=== PATIENT | female | born 1990 | race Caucasian/White ===

== ENCOUNTER 2019-10-07 11:53 | Emergency (ER) | payer MEDICAID, SELFPAY ==
[2019-10-07] VITALS (8 sets, daily range): BP systolic 100–137; BP diastolic 61–76; PULSE 81–97; RESP 15–23; TEMP 36.2; O2SAT 95–99
--- NOTE | ~2019-10-07 | CT_ITS ---
EXAMINATION: CTA chest PE protocol EXAM DATE: 10/07/2019 15:24 INDICATION: Shortness of breath. Chest pressure. Nausea. 30 weeks . TECHNIQUE: Spiral CTA of the chest (pulmonary arteries) was performed with 100 cc Omnipaque 350 intr avenous contrast injection. Images were acquired during the pulmonary arterial phase. Coronal maxi mum intensity projection 3D-reconstructions were created by the technologist on dedicated workstation . Axial, coronal and sagittal reformatted images were reviewed. The dose-length product (DLP) for t his examination was 687.74 mGy-cm. The exposure was tailored according to patient size (auto mA exp osure control), and iterative reconstruction (ASIR) was used as additional dose reduction technique. There is no prior study for comparison. FINDINGS: There is suboptimal pulmonary arterial opacification, however there are no filling defects suspected. Slight respiratory motion at the lung bases. No thoracic aortic dissection. The lungs a re clear. There are no pleural or pericardial effusions. Tracheobronchial tree is patent. There is no mediastinal, hilar or axillary lymphadenopathy. There is no pneumothorax. Heart normal in size. No evidence of coronary arterial calcification. Upper abdomen is unremarkable. There is th oracic spondylosis without osteoblastic or osteolytic lesions identified. IMPRESSION: Mild limitations but no pulmonary emboli suspected. Unremarkable exam. Reviewed, dictated and finalized at location A. IMPRESSION: Mild limitations but no pulmonary emboli suspected. Unremarkable ex am.
--- NOTE | ~2019-10-07 | XR_ITS ---
EXAMINATION: XR chest 2V 10/07/2019 12:39 INDICATION: Left-sided chest pain PROCEDURE: 2 view chest COMPARISON: No prior studies for comparison. FINDINGS: The lungs are clear. The cardiomediastinal silhouette is within normal limits. There are no pleural effusions. There is no pneumothorax suspected. IMPRESSION: 1: NO ACUTE CARDIOPULMONARY DISEASE. Reviewed, dictated and finalized at location A.
--- NOTE | 2019-10-07 11:58 | ECG_ITS ---
Measurements Intervals [place] Rate: 91 P: 153 DC: 143 QRS: 137 QRSD: 88 T: 165 QT: 340 QTc: 420 Interpretive Statements SINUS RHYTHM LIMB LEAD REVERSAL BASELINE ARTIFACT- I, II, III, AVR, AVL, AVF ATYPICAL ECG Electronically Signed On 10-07-2019 12:35:28 CDT by Nav Cuevas D.O.
[2019-10-07 12:37] LABS: Basophils Percent Auto 0.2 % (0.2-1.2); Eosinophils Percent Auto 0.3 % (0-4.4); Hematocrit 36.5 % (37.0-47.0); Hemoglobin 12.4 g/dL (12.0-15.0); Immature Granulocyte Absolute 0.08 K/mm3 (0.00-0.031); Immature Granulocyte Percent A 0.6 % (0-0.5); Lymphocytes Absolute Auto 1.33 K/mm3 (0.9-3.2); Lymphocytes Percent Auto 10.6 % (18.3-44.2); Mean Corpuscular Hemoglobin 31.5 pg (26-34); Mean Corpuscular Volume 92.6 fl (80-100); Mean Platelet Volume 10.3 fl (7.4-10.4); Monocytes Absolute Auto 0.7 K/mm3 (0.1-0.6); Monocytes Percent Auto 5.4 % (2.6-8.5); Neutrophils Absolute Auto 10.3 K/mm3 (1.3-6.7); Neutrophils Percent Auto 82.9 % (45.5-73.1); Platelet Count Result 263 k/mm3 (150-375); Red Blood Count 3.94 M/mm3 (4.2-5.4); Red Cell Distribution Width 13.4 % (11.5-14.5); White Blood Count 12.5 K/mm3 (4.5-10.0)
[2019-10-07 13:00] LABS: Blood Urea Nitrogen 5 mg/dL (7-17); Calcium 9.4 mg/dL (8.4-10.2); Carbon Dioxide 21 mmol/L (22-30); Chloride 104 mmol/L (98-107); Estimated CRCL calculation 186 ml/min; Estimated Glomerular Filt Rate > 60; Glucose 82 mg/dL (65-105); Potassium 3.8 mmol/L (3.4-5.0); Sodium 133 mmol/L (137-145)
--- NOTE | 2019-10-07 13:05 | ED.CHESTPAIN ---
HPI - Chest Pain General Chief Complaint: Chest Pain Stated Complaint: chest pains, pressure, SOB Nausea, 30 WKS PREG Time Seen by Provider: 10/07/19 12:07 Source: RN notes reviewed History of Present Illness HPI narrative: Patient presents emergency department from home for chest pain. Patient states she woke at 6 AM this morning with pain in the midsternal chest rating to her left chest and left shoulder. States associated with shortness of breath. States symptoms are improved at this time but still continues to have the symptoms. Patient also notes mild associated nausea. Patient is approximately 30 weeks patient is followed by Dr Taylor. States that she has had no abdominal pain diarrhea or any other symptoms. States she took no previous medication Related Data Home Medications Medication Instructions Recorded Confirmed vit 84-[id number]-[id number]-dha cap PO 10/07/19 10/07/19 [ Multi-DHA (algal oil)] Allergies Allergy/AdvReac Type Severity Reaction Status Date / Time codeine Allergy Unknown Nausea and Verified 10/07/19 11:55 Vomiting Review of Systems Review of Systems: Narrative: Gen.: Denies fevers or chills Eyes: Denies eye pain or visual change ENT: Denies congestion Respiratory: Reports shortness of breath CV: Reports chest pain GI: Denies abdominal pain, emesis or diarrhea. Reports nausea reports Musculoskeletal: Denies back pain or muscle pain Neuro: Denies numbness, tingling, weakness or focal weakness Skin: Denies rash Except as documented, all other systems reviewed and negative PMFSH Past Medical History Medical History (Updated 10/07/19 @ 16:23 by Tarik Martinez DO) Patient denies significant medical history Family History Family History (Updated 11/27/15 @ 23:19 by DOCTOR UNKNOWN) Grandparent Hypertension Family history of osteoarthritis Family history of malignant neoplasm of breast Diabetes mellitus Other Family history of malignant neoplasm of kidney Family history of malignant neoplasm of urinary bladder Social History Social History Smoking status: Never smoker Alcohol intake: never Gender identity (if verbalized by the patient): Female Exam Narrative: Exam Narrative: APPEARANCE: No acute distress, nontoxic, resting in bed EYES: EOMI HEENT: Normocephalic, atraumatic, OMM RESPIRATORY: No respiratory distress Clear to auscultation bilaterally with no rhonchi wheezing or rales. CARDIOVASCULAR: Regular rate and rhythm without murmurs rubs or gallops. ABDOMINAL: Gravid uterus palpated,, nontender, nondistended, no rebound or guarding MUSCULOSKELETAl: Moves all extremities. No clubbing, cyanosis or edema. NEURO: Awake and alert. Following commands, speech normal, no focal deficits SKIN:: Warm, dry. No rashes lesions or abrasions PSYCHIATRIC: Normal affect/mood, Course Course Emergency Course: Patient states that she is still feeling short of breath at this time Called and discussed Dr Taylor presentation and work-up. Discussed patient's continued shortness of breath. This time will obtain CTA chest to rule out a PE : Discussed Dr Taylor results of CTA. This time feels patient may be discharged recommends patient started on Pepcid and will follow in the office Discussed with patient results of workup and diagnosis. Discussed need for follow-up with primary care, proper use of medication, and reasons to return to the emergency department. Patient understands and agrees to current treatment plan Vital Signs Vital signs: Vital Signs Temperature 97.1 F L 10/07/19 11:58 Pulse Rate 97 10/07/19 11:58 Respiratory Rate 18 10/07/19 11:58 Blood Pressure 137/72 10/07/19 11:58 Pulse Oximetry 99 10/07/19 11:58 Temperature 97.1 F L 10/07/19 11:58 Pulse Rate 93 10/07/19 15:43 Respiratory Rate 23 H 10/07/19 15:43 Blood Pressure 112/75 10/07/19 15:
[2019-10-07 13:11] LABS: Troponin I < 0.012 ng/mL (0.000-0.034)
[2019-10-07 13:24] LABS: Partial Thromboplastin Time 27.6 SECONDS (22.3-36.8); Prothrombin Time 12.4 Seconds (11.1-14.7)
[2019-10-07] MEDS: MAG HYDROX/AL HYDROX/SIMETH 30 ML UDC PO (13:33)
[2019-10-07 14:23] LABS: Alanine Aminotransferase 13 U/L (4-35); Albumin Level 3.8 g/dL (3.5-5.1); Alkaline Phosphatase 103 U/L (38-126); Aspartate Amino Transferase 24 U/L (14-36); Bilirubin,Total 0.3 mg/dL (0.2-1.3); Lipase 74 U/L (23-300)
[2019-10-07 16:00] LABS: Troponin I < 0.012 ng/mL (0.000-0.034)
== END 2019-10-07 16:32 | disposition home or self-care (01) ==
PROVIDERS: Emergency Provider Emergency Medicine; PCP Family Medicine
DX: O26.893 Other specified pregnancy related conditions, third trimester (principal); R06.00 Dyspnea, unspecified; R07.2 Precordial pain; Z3A.30 30 weeks gestation of pregnancy
CPT/HCPCS: 36415; 71046; 71275; 80048; 80076; 83690; 84484; 85025; 85610; 85730; 93005; 96374; 99284; A9270; J0131; Q9967

== ENCOUNTER 2019-10-31 16:23 | Observation (INO) | payer MEDICAID, SELFPAY ==
[2019-10-31 16:42] VITALS: BP 115/75; PULSE 96
[2019-10-31 16:45] VITALS: BP 109/64; PULSE 91
[2019-10-31 17:00] VITALS: BP 120/74; PULSE 101; TEMP 36.9
[2019-10-31] MEDS: DEXTROSE 5%/LACTATED RINGERS 1,000 ML 999 ML IV CONT (17:41)
[2019-10-31 17:44] LABS: Add Urine Microscopic? YES; Amorphous Sediment Urine Few; Appearance Urine Clear (Clear); Bacteria Urine Trace /hpf; Bilirubin Urine 1+ (Negative); Blood Urine Negative (Negative); Color Urine Yellow (Yellow); Glucose Urine UA Negative (Negative); Ketones Urine Trace mg/dL (Negative); Leukocyte Esterase Ur Negative LEU/UL (Negative); Mucus Urine Heavy /lpf; Nitrate Urine Negative (Negative); Protein Urine 2+ mg/dL (Negative); Squamous Epithelial Cell Urine Many /hpf (Few)
[2019-10-31 17:45] LABS: Specific Grav Ur 1.032 (1.001-1.035)
[2019-10-31 17:46] VITALS: BMI 36.1
--- NOTE | 2019-10-31 17:51 | OBADM ---
This patient, Meghna Go, admitted to the OB room 117 at 1623 for observation for nausea, diarrhea, and possible leakage of fluid. Patient/family oriented to hospital policies and general routines including ID bracelet, bed and alarms, visiting hours, pain management, procedures, bathroom and other care routines, personal items, smoking policy, room service/diet, and visiting hours. Patient/Family are encouraged to report perceived risks to care and to ask questions if they do not understand what they are told or what they should do.
[2019-10-31 18:00] VITALS: BP 109/79; PULSE 87
[2019-10-31] MEDS: ONDANSETRON INJ 4 MG/2 ML VIAL IV PUSH (18:11)
--- NOTE | 2019-10-31 18:55 | PC.NURSE ---
184- Dr. Taylor paged [phone]- Dr. Taylor returned page- update on pt given. pt feeling better overall except a frontal headache- 5/10 pain- pt not wanting pain medication for headache at this time. Pt wanting to know if she is ok to take pepcid at home- ok to take OTC pepcid 20mg BID. continue fluids and rest at home. f/u in office at next visit or return to L&D if further questions/concerns. order to d/c home recieved.
--- NOTE | 2019-11-05 12:08 | PM.OBTRLD ---
OB - Triage/Final Diagnosis Evaluation Laboratory results: Laboratory Tests 10/31/19 17:30 Urine Color Yellow Urine Appearance Clear Urine pH 6.0 Ur Specific [place] 1.032 Urine Protein 2+ H Urine Glucose (UA) Negative Urine Ketones Trace Ur Blood (Man) Negative Urine Nitrate Negative Urine Bilirubin 1+ H Urine Urobilinogen 2.0 H Leukocyte Esterase Rfl Negative Urine RBC 3-5 H Urine WBC 4-6 H Ur Squamous Epith Cells Many H Amorphous Sediment Few H Urine Bacteria Trace Urine Mucus Heavy H Final Diagnosis (1) Cramping affecting , antepartum: Code(s): O26.899 - Other specified related conditions, unspecified trimester; R10.9 - Unspecified abdominal pain Status: Acute
== END 2019-10-31 19:18 | disposition home or self-care (01) ==
PROVIDERS: Admitting Provider Obstetrics & Gynecology; PCP Family Medicine; Visit Provider Obstetrics & Gynecology
DX: O26.899 Other specified pregnancy related conditions, unspecified trimester (principal); R10.9 Unspecified abdominal pain; Z3A.00 Weeks of gestation of pregnancy not specified
CPT/HCPCS: 81001; 96374; G0378; G0379; J0690; J2405; J7121

== ENCOUNTER 2019-12-02 09:57 | Outpatient (RCR) | payer OTHER, SELFPAY ==
--- NOTE | ~2019-12-02 | US_ITS ---
EXAMINATION: US OB limited DATE: 12/02/2019 11:21 INDICATION: Amniotic fluid index assessment, third trimester TECHNIQUE: Real-time ultrasound of the pelvis was performed. The interpreting radiologist was not pre sent for the study. COMPARISON: None. FINDINGS: There is a single living fetus in vertex presentation. The placenta is anterior/fundal. Fet al cardiac activity and movement are noted. heart rate is 150 beats per minute (bpm). The amniotic fluid index is 19.1 cm which is normal. IMPRESSION: 1. Single living fetus in vertex presentation. 2. Normal amniotic fluid assessment. Reviewed, dictated and finalized at location A.
[2019-12-02 10:54] VITALS: BP 122/79; PULSE 96
== END 2019-12-19 07:41 | disposition home or self-care (01) ==
LOC: ANHOBOP 09:57
PROVIDERS: PCP Family Medicine; Visit Provider Obstetrics & Gynecology
DX: O36.8130 Decreased fetal movements, third trimester, not applicable or unspecified (principal); Z3A.38 38 weeks gestation of pregnancy
CPT/HCPCS: 59025; 76815

== ENCOUNTER 2019-12-04 17:31 | Inpatient (IN) | payer OTHER, SELFPAY ==
[2019-12-05] VITALS (230 sets, daily range): BP systolic 80–139; BP diastolic 21–104; PULSE 71–152; RESP 16; TEMP 36.6–37.2; O2SAT 91–100; BMI 38.4
--- NOTE | 2019-12-05 00:10 | LDADM ---
This patient, Meghna Go, was admitted to Labor/Delivery/Recovery 103 on 12/04/19 at 17:31. Plans for labor, pain management and were discussed with patient. Patient/family oriented to hospital policies and general routines including ID bracelet, bed and alarms, visiting hours, pain management, procedures, bathroom and other care routines, personal items, smoking policy, room service/diet and guest tray routines, security routines, and visiting hours. Patient/Family are encouraged to report perceived risks to care and to ask questions if they do not understand what they are told or what they should do. See OBIX for further documentation.
[2019-12-05] MEDS: LACTATED RINGERS 1,000 ML 125 ML IV CONT ×4 (00:22→10:54)
[2019-12-05 00:28] LABS: Basophils Percent Auto 0.3 % (0.2-1.2); Eosinophils Percent Auto 0.3 % (0-4.4); Hematocrit 33.5 % (37.0-47.0); Hemoglobin 11.7 g/dL (12.0-15.0); Immature Granulocyte Percent A 0.7 % (0-0.5); Lymphocytes Absolute Auto 1.52 K/mm3 (0.9-3.2); Lymphocytes Percent Auto 11.3 % (18.3-44.2); Mean Corpuscular HGB Conc 34.9 g/dl (32-36); Mean Corpuscular Hemoglobin 32.2 pg (26-34); Mean Corpuscular Volume 92.3 fl (80-100); Mean Platelet Volume 10.8 fl (7.4-10.4); Monocytes Absolute Auto 0.9 K/mm3 (0.1-0.6); Monocytes Percent Auto 6.3 % (2.6-8.5); Neutrophils Absolute Auto 10.9 K/mm3 (1.3-6.7); Neutrophils Percent Auto 81.1 % (45.5-73.1); Platelet Count Result 258 k/mm3 (150-375); Red Blood Count 3.63 M/mm3 (4.2-5.4); Red Cell Distribution Width 14.2 % (11.5-14.5); White Blood Count 13.5 K/mm3 (4.5-10.0)
--- NOTE | 2019-12-05 00:54 | WPDANESEPP ---
Anes - Eval Pre Procedure Procedure: Labor epidural Date/Time: 12/05/19 00:54 Surgeon: jackie Preop Diagnosis: pain during labor Pre Op Diagnosis: contractions, leaking fluid Patient Data Age: 29 Gender: F Height: 1.75 m Weight: 118 kg Last Vital Signs Temp 37.0 C 12/05/19 00:15 Pulse 91 12/05/19 00:07 BP 122/85 12/05/19 00:07 Pulse Ox 99 12/05/19 00:53 Allergies Allergy/AdvReac Type Severity Reaction Status Date / Time codeine AdvReac Unknown Nausea and Verified 12/02/19 10:49 Vomiting hydrocodone [From Vicodin] AdvReac Nausea and Verified 12/02/19 10:49 Vomiting Home Medications Medication Instructions Recorded Confirmed Type Multi-DHA (algal oil) 1 cap PO DAILY 10/07/19 12/04/19 History omeprazole 20 mg PO DAILY 11/18/19 12/02/19 History Laboratory Tests 12/05/19 12/05/19 00:20 00:20 WBC 13.5 K/mm3 H K/mm3 (4.5-10.0) RBC 3.63 M/mm3 L M/mm3 (4.2-5.4) Hgb 11.7 g/dL L g/dL (12.0-15.0) Hct 33.5 % L % (37.0-47.0) MCV 92.3 fl fl (80-100) MCH 32.2 pg pg (26-34) MCHC 34.9 g/dl g/dl (32-36) RDW 14.2 % % (11.5-14.5) Plt Count 258 k/mm3 k/mm3 (150-375) MPV 10.8 fl H fl (7.4-10.4) Immature Gran % (Auto) 0.7 % H % (0-0.5) Neut % (Auto) 81.1 % H % (45.5-73.1) Lymph % (Auto) 11.3 % L % (18.3-44.2) Sawyer % (Auto) 6.3 % % (2.6-8.5) Eos % (Auto) 0.3 % % (0-4.4) Baso % (Auto) 0.3 % % (0.2-1.2) Lymph # (Auto) 1.52 K/mm3 K/mm3 (0.9-3.2) Sawyer # (Auto) 0.9 K/mm3 H K/mm3 (0.1-0.6) Eos # (Auto) 0.0 K/mm3 K/mm3 (0-0.3) Baso # (Auto) 0.0 K/mm3 K/mm3 (0.0-0.1) Abs Immat Gran (auto) 0.10 K/mm3 H K/mm3 (0.00-0.031) Absolute Neuts (auto) 10.9 K/mm3 H K/mm3 (1.3-6.7) Absolute Nucleated RBC 0.0 K/mm3 K/mm3 (0.0-0.012) Nucleated RBC % 0.0 % % (0.0-0.2) RPR Pending Patient hx anesthesia problems: none Family hx anesthesia problems: none PMFSH Past Medical History Medical History (Updated 12/05/19 @ 00:54 by Deb Murrieta CRNA) Obesity (BMI 30-39.9) Patient denies significant medical history Family History Family History (Updated 11/18/19 @ 12:40 by Laci Valencia RN) Grandparent Family history of osteoarthritis Diabetes mellitus Hypertension Family history of malignant neoplasm of kidney Family history of malignant neoplasm of urinary bladder Lymphoma Asthma Hypothyroid Cataract Mother Hypertension Bipolar 1 disorder Social History Social History Smoking status: Never smoker Alcohol intake: never Substance use: never Gender identity (if verbalized by the patient): Female Spiritual care concerns: No Exam Day of Procedure 12/05/19 00:54
[2019-12-05] MEDS: OXYTOCIN 30 UNITS/NS 500 ML 30 UNITS/500 ML BAG IV CONT ×3 (02:56→15:09)
--- NOTE | 2019-12-05 07:22 | WPDHPUPDATE1 ---
History and Physical Update Update Date/Time: 12/05/19 07:22 29 yo G1 at 38w3d who presented in labor. Pt reports regular contractions that started Monday afternoon. She denies any LOF or vaginal bleeding. She endorses good movement. Her has been uncomplicated to date. History and Physical has been reviewed, including an updated exam of the patient. There are NO changes in the patient's condition. Risks, benefits, and alternatives have been discussed and questions answered. Patient agrees to proceed with procedure. A/P: 29 yo G1 at 38w3d in labor admit to L&D routine admission orders Rh+ GBS neg FHT cat 1 regular ctx on toco SROM for clear fluid continuous EFM expectant management
--- NOTE | 2019-12-05 08:45 | WPDOBADMIT ---
Obstetrics - Admit Note Admission Note: record reviewed. Additions to the history and/or subsequent changes in the physical findings follow. 29 y/o G1 at 38 3/7 weeks here with contractions. Had SROM while here for evaluation last evening. Now comfortable with epidural, receiving oxytocin for labor augmentation. AVSS NST reactive TOCO: contractions every 2-4 min ABD soft, nontender, gravid, vertex EXT nontender Cervix 4/90/-1. Vertex. A: IUP at term. P: Continue labor. Anticipate .
[2019-12-05 10:20] LABS: Rapid Plasma Reagin Non-Reactive (NonReactive)
[2019-12-05] MEDS: ONDANSETRON INJ 4 MG/2 ML VIAL IV PUSH (10:57)
--- NOTE | 2019-12-05 12:43 | PM.OBPNLAB ---
Pain Control Date/time seen: 12/05/19 12:43 Comments: Feeling more pressure. Pelvic Exam Dilation (cm): 8 Effacement (%): 100 station: +1 Contractions Contraction frequency: 3 Contraction pattern: Regular Status status: Category l Assessment and Plan Comments: Continue labor.
--- NOTE | 2019-12-05 15:00 | PM.OBPRVD ---
OB - Delivery Note Procedure Delivery date: 12/05/19 Procedure: Induction method: none Delivery augmentation: pitocin Delivery monitor: external FHT and external uterine Route of delivery: Laceration description: Perineal - 2nd Degree Delivery repair: vicryl (3-0) Specimen: Yes (cord blood) Estimated blood loss (mL): 1,434 Anesthesia type: Epidural Disposition: PACU Complications: None Narrative: 29 y/o G1 at 38 3/7 weeks gestation who presented to the hospital with complaint of contractions. She then had SROM while here for evaluation, so labor was diagnosed. Oxytocin was subsequently administered intravenously for labor augmentation. She received an epidural for pain control. Her labor progressed and her cervix dilated completely. She pushed with good effort and delivered the infant's head to the perineum, followed by the body. The nose and mouth were bulb suctioned. After a delay, the cord was clamped and cut. The was handed off the field. Cord blood was collected. The placenta delivered spontaneously and was grossly normal in appearance. The usual 3 vessel cord was noted. A second degree midline perineal laceration was sustained. This was reapproximated using 2-0 and 3-0 Vicryl in the usual layered fashion. Excellent hemostasis resulted as did excellent reapproximation of the normal anatomy. Needle and instrument counts were correct. The patient was taken to recovery room in stable condition. The infant went to the nursery in stable condition. I was present and scrubbed for the entire delivery. [place] Baby Date of : 12/05/19 Time of : 14:34 Weeks of gestation at delivery: 38 Infant gender: Male Weight (pounds): 8 Weight (ounces): 11 presentation: vertex position: Right Occiput Anterior Placenta delivery description: Spontaneous and Normal Configuration cord vessel description: 3 Vessels and Nuchal Cord score one minute: 9 score five minutes: 9
[2019-12-05] MEDS: BENZOCAINE 20% AER SPR (*SP) 56 GM CAN 1 SPRAY TOPICAL (16:35)
[2019-12-05] MEDS: IBUPROFEN 600 MG TABLET PO ×2 (16:35→23:00)
[2019-12-05] MEDS: WITCH HAZEL 40 PADS 1 PAD TOPICAL (16:35)
--- NOTE | 2019-12-05 17:43 | PC.NURSE ---
Patient transferred to post room #291 via wheelchair. Support person present. Oriented to unit, room, information board, rooming in, admission packet and security measures. Patient verbalizes understanding.
[2019-12-06 05:27] LABS: Hematocrit 28.2 % (37.0-47.0); Hemoglobin 9.7 g/dL (12.0-15.0)
[2019-12-06] MEDS: IBUPROFEN 600 MG TABLET PO ×2 (06:06→11:58)
--- NOTE | 2019-12-06 07:50 | WPDANLDPN2 ---
Anes-Prog Note L&D Date/Time: 12/06/19 07:50 Comfortable throughout: labor Neuraxial method: epidural Epidural/Spinal procedure site: clean & non-tender Neuro status: Neuro function grossly intact. Cardiovascular status: normal Respiratory status: normal Airway patency: baseline Mental status: baseline Post-Op hydration status: normal Vital Signs: Last Vital Signs Temp 37.2 C 12/05/19 15:45 Pulse 98 12/05/19 17:16 Resp 16 12/05/19 15:45 BP 127/69 12/05/19 17:16 Pulse Ox 97 12/05/19 15:45 I/O: Intake & Output 12/05/19 12/05/19 12/06/19 15:59 23:59 07:59 Intake Total 1999 Output Total 54 Balance 1999 Post-procedural complaints: none Patient feedback: Patient satisfied with anesthetic care.
[2019-12-06 08:00] VITALS: PULSE 98; RESP 16; O2SAT 97
[2019-12-06 08:15] VITALS: BP 101/75; PULSE 110; RESP 18; TEMP 36.2; O2SAT 98
[2019-12-06] MEDS: DOCUSATE SODIUM 100 MG CAPSULE PO (08:21)
[2019-12-06] MEDS: MULTIVIT/MIN/PREN/FOL AC/IRON TABLET 1 TAB PO (08:21)
[2019-12-06] MEDS: POLYSACCHARIDE IRON COMPLEX 150 MG CAPSULE PO (08:21)
[2019-12-06] MEDS: TETANUS,DIPHTHERIA,AC PERTUSSIS ADULT (0.5 ML) BOOSTRIX IM (11:59)
--- NOTE | 2019-12-06 13:18 | PM.OBPNVD ---
OB - PN: Subj Subjective Date/time seen: 12/06/19 13:19 Narrative: Pain OK. Would like circumcision for son. OB - PN: Obj Data Labs CBC & Chem 7: 12/06/19 04:00 Labs: Laboratory Results - last 24 hr 12/06/19 04:00 Hgb 9.7 L Hct 28.2 L OB - PN A/P Plan Comments: A: PPD#1, doing well. P: Routine care. Reviewed circumcision. Exam Psych: Other: AVSS ABD soft, nontender, fundus firm EXT nontender
--- NOTE | 2019-12-06 16:00 | PC.NURSE ---
Patient viewed the discharge video Mother & Baby Care, The First Two Weeks . Patient was given the opportunity and encouraged to ask questions. Patient verbalized understanding of information shared and has been given the mother/baby guide for home reference.
[2019-12-09 11:25] VITALS: BP 117/72; PULSE 94; RESP 20; TEMP 36.3; O2SAT 99
--- NOTE | 2019-12-09 11:56 | PM.OBDSVD ---
DS: Admitting Diagnosis Admitting Diagnosis Admitting Diagnosis: labor at term DS: Discharge Diagnosis Discharge Diagnosis (1) (normal spontaneous vaginal delivery): Code(s): O80 - Encounter for full-term uncomplicated delivery Status: Acute OB - DS: Summary OB Procedures : None OB Procedures Intrapartum: Spontaneous Vag Delivery OB Procedures: : None Time Spent with Patient Time attestation: Total time spent providing and/or coordinating discharge services: Discharge Plan Discharge Attending physician on discharge: Byron Taylor Discharging Clinician: Byron Taylor Patient Disposition: Home, Self-Care Activity: pelvic rest Diet: regular Discharge Instructions: Call or return if temperature above 100.4? F, increased abdominal pain, increased vaginal bleeding or any new problems. Education: Mom and Baby Guide Given to: Mother Follow-Up: Call your delivering provider's office for an appointment to be seen in: 6 Weeks Mom and baby should come to the [facility] for the follow-up appointment. Appointment Date/Time: December 09, 2019 at 11:00 am What to expect at your follow-up visit: Physical Assessment Call [phone] if you are unable to keep your appointment time. BREAST CARE: * Wear a snug supportive bra. * For engorgement discomfort: Breast Feeding: * Apply warm moist washcloths * Express milk as needed to relieve engorgement * Wear loose clothing Bottle Feeding: * May apply ice packs * For sore nipples: * Identify correct latch-on * Apply warm moist washcloths before and after nursing * Air dry nipples after nursing * May apply Lansinoh cream to nipples EPISIOTOMY/PERINEAL CARE: * Until bleeding stops, use your pj bottle after urinating * Change your pad frequently throughout the day * You may take sitz baths several times a day (fill your bathtub with warm water and soak for 20 minutes.) Do NOT bathe in the water * No tub baths until seen by your physician - You may shower ACTIVITY: * Rest as much as possible. * Do not exercise or lift anything heavier than your baby (such as laundry or other children.) * Avoid stairs or driving as much as possible. * Do not put anything into the vagina. No douching, tampons, or sexual activity until seen by physician. NOTIFY PHYSICIAN IF YOU HAVE ANY QUESTIONS OR IF ANY OF THE FOLLOWING SYMPTOMS OCCUR: * If your episiotomy or incision becomes red, swollen, or more painful than what you have experienced in the hospital. * If your vaginal bleeding becomes foul smelling. * If your vaginal bleeding becomes more heavy than a period or if your bleeding changes from pink to bright red. However, you may pass an occasional walnut-sized clot once or twice for the first week . * If you experience a sharp, shooting pain in you calves. * If you discover a hard, reddened area on your breast or if you experience flu-like symptoms. DIET: * Eat regular, well-balanced meals. * Drink plenty of fluids daily. If , drink to thirst. Stand Alone Forms: General Discharge Information Follow-up/Referrals: Byron Taylor MD [Physician] - (6 weeks) Discharge Medications: New ibuprofen 600 mg tablet 600 mg PO Q6H PRN (Reason: cramps) Qty: 30 RF: 0 ferrous sulfate 325 mg (65 mg iron) tablet 325 mg PO DAILY Qty: 30 RF: 0 Continued omeprazole 20 mg Capsule,Delayed Release(Dr/Ec) 20 mg PO DAILY RF: 0 Multi-DHA (algal oil) 27mg iron- 800 mcg-250 mg capsule 1 cap PO DAILY RF: 0 Date of admission: 12/04/19 17:31 Primary Care Provider: Omid Bernal Admitting Provider: Davin Mac Discharge Date/Time: 12/06/19 18:47 Attending physician on admission: Byron Taylor
== END 2019-12-06 18:47 | disposition home or self-care (01) | DRG 560 ==
LOC: ANHLDR 23:39 → ANHOB2 12-05 17:47
PROVIDERS: Admitting Provider Student in an Organized Health Care Education/Training Program; PCP Family Medicine; Visit Provider Obstetrics & Gynecology
DX: O69.81X0 Labor and delivery complicated by cord around neck, without compression, not applicable or unspecified (principal); O70.1 Second degree perineal laceration during delivery; Z3A.38 38 weeks gestation of pregnancy; Z37.0 Single live birth; E66.9 Obesity, unspecified; O99.214 Obesity complicating childbirth
CPT/HCPCS: 36415; 85014; 85018; 85025; 86592; 86850; 86900; 86901; 90715; A9270; J0131; J2405; J2590; J2795; J7120

== ENCOUNTER 2020-04-03 02:11 | Emergency (ER) | payer OTHER, SELFPAY ==
--- NOTE | ~2020-04-03 | CT_ITS ---
EXAMINATION: CT abdomen pelvis w con EXAM DATE: 04/03/2020 03:58 INDICATION: Epigastric pain. TECHNIQUE: Spiral CT of the abdomen and pelvis was performed following intravenous injection of 100 m L Omnipaque 350. Axial, coronal and sagittal images were reviewed. The dose-length product (DLP) fo r this examination was 1316.75 mGy-cm. The exposure was tailored according to patient size (auto mA exposure control), and iterative reconstruction (ASIR) was used as additional dose reduction techniqu e. Comparison is made to prior examination from 04/05/2015. FINDINGS: The liver, spleen, adrenal glands and pancreas are unremarkable. No calcified cholelithias is. Slightly indistinct gallbladder wall, consider correlating with ultrasound. Portal and splenic v eins are patent. Kidneys enhance symmetrically. There is no hydronephrosis. The uterus and ovarie s are unremarkable, no adnexal mass. The bladder is unremarkable. There is no retroperitoneal or pe lvic lymphadenopathy. The appendix is normal. The stomach and small bowel are unremarkable. There is expected amount of c olonic stool. No free intraperitoneal gas. The heart is normal in size. There are no pericardial or pleural effusions. The lung bases are unremarkable. There are no osteoblastic or osteolytic les ions identified. IMPRESSION: Mildly distended gallbladder with mildly indistinct wall. Possible cholecystitis. Recomme nd ultrasound. Reviewed, dictated and finalized at location A. TACKER SEWING MACHINE IMPRESSION: Mildly distended gallbladder with mildly indistinct wall. Possible cholecystitis. Recommend ultrasound.
[2020-04-03 02:12] VITALS: BP 156/109; PULSE 82; RESP 16; TEMP 36.1; O2SAT 100
--- NOTE | 2020-04-03 02:23 | ED.ABDPAIN ---
HPI - Abdominal Pain General Chief Complaint: Abdominal Pain Stated Complaint: abdominal pain, vomiting Time Seen by Provider: 04/03/20 02:13 History of Present Illness HPI narrative: Epigastric pain since about 10 PM last night. Worsening in intensity. Associated with nausea and vomiting. Tried taking Tums twice without relief. She has never had this pain before. No prior abdominal surgeries. She did have GERD when she was 4 months ago. Related Data Home Medications Medication Instructions Recorded Confirmed Multi-DHA (algal oil) 1 cap PO DAILY 10/07/19 12/04/19 omeprazole 20 mg PO DAILY 11/18/19 12/02/19 Allergies Allergy/AdvReac Type Severity Reaction Status Date / Time codeine AdvReac Unknown Nausea and Verified 04/03/20 02:16 Vomiting hydrocodone [From Vicodin] AdvReac Nausea and Verified 04/03/20 02:16 Vomiting Review of Systems Review of Systems: All systems reviewed & are unremarkable except as noted in HPI and below Constitutional: Constitutional: Denies fever(s) ENT: Denies sore throat Cardiovascular: Cardiovascular: Denies chest pain Respiratory: Respiratory: Denies dyspnea Gastrointestinal: Gastrointestinal: Reports abdominal pain, Denies constipation, Denies diarrhea, Reports nausea and Reports vomiting Genitourinary: Genitourinary: Denies dysuria Musculoskeletal: Musculoskeletal: Reports no additional musculoskeletal complaints Neurologic: Denies dizziness and Denies weakness PMF Past Medical History Medical History Obesity (BMI 30-39.9) Patient denies significant medical history Family History Family History Grandparent Family history of osteoarthritis Diabetes mellitus Hypertension Family history of malignant neoplasm of kidney Family history of malignant neoplasm of urinary bladder Lymphoma Asthma Hypothyroid Cataract Mother Hypertension Bipolar 1 disorder Social History Social History Smoking status: Never smoker Alcohol intake: never Substance use: never Gender identity (if verbalized by the patient): Female Spiritual care concerns: No Exam Const: General: no acute distress and alert Nutritional Appearance: obese Orientation/consciousness: patient oriented x3 HENMT: Head: normal to inspection Chest: Chest palpation & inspection: normal inspection of the chest and no tenderness Resp: Effort & Inspection: normal respiratory effort Auscultation: clear to auscultation bilaterally Cardio: Rate: regular rate Rhythm: regular rhythm GI: Inspection: non-distended GI Palp: Yes Soft to palpation, Yes Tenderness to palpation present (GI) (Epigastrium and RUQ), No Guarding due to palpation present (GI) and No Rebound tenderness present Auscultation: normal bowel sounds Skin: General skin exam: normal color Neuro: General: patient oriented x3 and moves all extremities Extrem: General: normal to inspection and no edema Course Vital Signs Vital signs: Vital Signs Temperature 36.1 C L 04/03/20 02:12 Pulse Rate 82 04/03/20 02:12 Respiratory Rate 16 04/03/20 02:12 Blood Pressure 156/109 H 04/03/20 02:12 Pulse Oximetry 100 04/03/20 02:12 Temperature 36.1 C L 04/03/20 02:12 Pulse Rate 85 04/03/20 06:17 Respiratory Rate 18 04/03/20 06:17 Blood Pressure 110/63 04/03/20 06:17 Pulse Oximetry 98 04/03/20 06:17 MDM - Abdominal Pain MDM Narrative Medical decision making narrative: Acute cholecystitis on CT. Case discussed with Dr. Keyes. He is will ing to admit if the patient would like unsure when she would go to the OR. Otherwise she can go home on antibiotics. Discussed this with the patient. She chooses to go home and follow-up next week. Differential Diagnosis Differential diagnosis: Likely other (Cholecystitis,
[2020-04-03] MEDS: PANTOPRAZOLE SODIUM IV 40 MG VIAL IV PUSH (02:28)
[2020-04-03] MEDS: fentaNYL CITRATE INJ (*CRX) 100 MCG/2 ML VIAL 50 MCG IV PUSH (02:28)
[2020-04-03] MEDS: SODIUM CHLORIDE 0.9% IV 1,000 ML 999 ML IV CONT (02:28)
[2020-04-03] MEDS: ONDANSETRON INJ 4 MG/2 ML VIAL IV PUSH (02:28)
[2020-04-03 02:44] LABS: Basophils Percent Auto 0.4 % (0.2-1.2); Eosinophils Absolute Auto 0.1 K/mm3 (0-0.3); Eosinophils Percent Auto 1.1 % (0-4.4); Hematocrit 38.7 % (37.0-47.0); Hemoglobin 13.2 g/dL (12.0-15.0); Immature Granulocyte Absolute 0.05 K/mm3 (0.00-0.031); Immature Granulocyte Percent A 0.4 % (0-0.5); Lymphocytes Absolute Auto 2.07 K/mm3 (0.9-3.2); Lymphocytes Percent Auto 18.3 % (18.3-44.2); Mean Corpuscular HGB Conc 34.1 g/dl (32-36); Mean Corpuscular Volume 90.8 fl (80-100); Mean Platelet Volume 10.2 fl (7.4-10.4); Monocytes Absolute Auto 0.8 K/mm3 (0.1-0.6); Monocytes Percent Auto 7.2 % (2.6-8.5); Neutrophils Absolute Auto 8.2 K/mm3 (1.3-6.7); Neutrophils Percent Auto 72.6 % (45.5-73.1); Platelet Count Result 336 k/mm3 (150-375); Red Blood Count 4.26 M/mm3 (4.2-5.4); Red Cell Distribution Width 13.5 % (11.5-14.5); White Blood Count 11.3 K/mm3 (4.5-10.0)
[2020-04-03 03:25] LABS: Alanine Aminotransferase 27 U/L (4-35); Albumin Level 4.8 g/dL (3.5-5.1); Alkaline Phosphatase 125 U/L (38-126); Anion Gap 11 mmol/L (8-16); Aspartate Amino Transferase 31 U/L (14-36); Bilirubin,Total 0.5 mg/dL (0.2-1.3); Blood Urea Nitrogen 15 mg/dL (7-17); Calcium 10.6 mg/dL (8.4-10.2); Carbon Dioxide 29 mmol/L (22-30); Chloride 99 mmol/L (98-107); Estimated CRCL calculation 118 ml/min; Estimated Glomerular Filt Rate > 60; Glucose 113 mg/dL (65-105); Lipase 137 U/L (23-300); Sodium 139 mmol/L (137-145)
[2020-04-03 03:43] LABS: Potassium 3.6 mmol/L (3.4-5.0)
[2020-04-03] MEDS: CIPROFLOXACIN 500 MG TAB PO (05:43)
[2020-04-03 06:17] VITALS: BP 110/63; PULSE 85; RESP 18; O2SAT 98
== END 2020-04-03 06:19 | disposition home or self-care (01) ==
PROVIDERS: Emergency Provider Emergency Medicine; PCP Family Medicine
DX: K81.9 Cholecystitis, unspecified (principal); E66.9 Obesity, unspecified; Z68.33 Body mass index [BMI] 33.0-33.9, adult
CPT/HCPCS: 36415; 74177; 80053; 81025; 83690; 85025; 96361; 96374; 96375; 99284; A9270; C9113; J2405; J3010; J7030; Q9967

== ENCOUNTER 2020-04-08 10:14 | Outpatient (CLI) | payer OTHER, SELFPAY ==
[2020-04-08 10:54] LABS: Alanine Aminotransferase 26 U/L (4-35); Albumin Level 4.4 g/dL (3.5-5.1); Alkaline Phosphatase 89 U/L (38-126); Amylase 55 U/L (30-110); Aspartate Amino Transferase 29 U/L (14-36); Bilirubin,Total 0.5 mg/dL (0.2-1.3); Lipase 82 U/L (23-300)
== END 2020-04-08 10:15 | disposition home or self-care (01) ==
LOC: ANHSURGERY 10:15
PROVIDERS: PCP Family Medicine; Visit Provider Surgery
DX: Z01.812 Encounter for preprocedural laboratory examination (principal); K81.1 Chronic cholecystitis
CPT/HCPCS: 36415; 80076; 82150; 83690; 86850; 86900; 86901

== ENCOUNTER 2020-04-10 02:03 | Outpatient (CLI) | payer OTHER, SELFPAY ==
[2020-04-10 18:46] LABS: SARS-CoV-2 RNA PCR Negative
== END 2020-04-10 02:04 | disposition home or self-care (01) ==
LOC: ANHCOVIDDT 02:03
PROVIDERS: PCP Family Medicine; Visit Provider Surgery
DX: Z01.812 Encounter for preprocedural laboratory examination (principal); Z11.59 Encounter for screening for other viral diseases
CPT/HCPCS: 87635; C9803; U0003

== ENCOUNTER 2020-04-13 01:41 | Day surgery (SDC) | payer OTHER, SELFPAY ==
[2020-04-06 14:52] VITALS: BMI 34.7
[2020-04-13] VITALS (7 sets, daily range): BP systolic 111–117; BP diastolic 53–71; PULSE 63–106; RESP 14–18; TEMP 36.1–36.8; O2SAT 95–100
[2020-04-13] MEDS: LACTATED RINGERS 1,000 ML 30 ML IV CONT ×3 (06:25→09:50)
[2020-04-13] MEDS: ACETAMINOPHEN 500 MG TABLET 1000 MG PO (06:36)
--- NOTE | 2020-04-13 06:36 | WPDANESEPPF ---
Anes - Initial Pre Proc Eval Procedure: Operation Date: 04/13/20 07:30 Proposed Procedures p Laparoscopic Cholecystectomy, Possible Open - Jamia Keyes MD Date/Time: 04/13/20 06:36 Surgeon: Jamia Keyes MD Pre Op Diagnosis: Chronic Cholecystitis Without Calculus Patient Data Age: 29 Gender: F Height: 1.75 m Weight: 107.1 kg Allergies Allergy/AdvReac Type Severity Reaction Status Date / Time codeine AdvReac Mild Nausea and Verified 04/13/20 06:06 Vomiting Home Medications Medication Instructions Recorded Confirmed Type Multi-DHA (algal oil) 1 cap PO DAILY 10/07/19 04/13/20 History fluoxetine 20 mg PO DAILY 04/06/20 04/13/20 History Patient hx anesthesia problems: none Family hx anesthesia problems: none [facility] Past Medical History Medical History (Updated 04/13/20 @ 06:52 by Jericho Le DO) Anxiety Depression History of kidney stones History of MRSA infection inner thigh, 2012 - treated outpatient Obesity (BMI 30-39.9) Patient denies significant medical history Surgical History Surgical History Dislocation of proximal interphalangeal joint of finger S/P ovarian cystectomy Family History Family History Grandparent Family history of osteoarthritis Diabetes mellitus Hypertension Family history of malignant neoplasm of kidney Family history of malignant neoplasm of urinary bladder Lymphoma Asthma Hypothyroid Cataract Mother Hypertension Bipolar 1 disorder Social History Social History Smoking status: Never smoker Alcohol intake: never Substance use: never Living arrangements: with family Gender identity (if verbalized by the patient): Female Spiritual care concerns: No Anes - Eval Final PreProcedure Day of Procedure 04/13/20 06:36 Patient weight: obese Heart: regular rate and rhythm Lungs: clear to auscultation and normal air movement Airway: Mallampati scale class 1 Neurological: alert and oriented Last oral intake: >/= 8 hours ASA classification: II Emergent: no Anesthetic plan: proceed Anesthesia type and monitoring: general ETT and standard monitoring Informed Consent: The patient's anesthetic plan and its attendant risks and benefits were discussed with the patient/family/POA. Questions were solicited and answers provided to the satisfaction of the patient/family/POA.
[2020-04-13] MEDS: KETOROLAC 15 MG/ML VIAL (*BKC) IV PUSH (06:37)
--- NOTE | 2020-04-13 07:22 | WPDHPUPDATE1 ---
History and Physical Update Update Date/Time: 04/13/20 07:22 History and Physical has been reviewed, including an updated exam of the patient. There are NO changes in the patient's condition. Risks, benefits, and alternatives have been discussed and questions answered. Patient agrees to proceed with procedure.
[2020-04-13] MEDS: ceFAZolin 2 GM/D5W 50 ML 2 GM/50 ML BAG IVPB (07:30)
[2020-04-13] MEDS: BUPIVACAINE/EPINEPHRINE 0.25% 10 ML VIAL 30 ML INFILTRATE (07:58)
--- NOTE | 2020-04-13 08:18 | PM.PROC ---
Procedure Note - Detailed Date of procedure: 04/13/20 Pre-op diagnosis: Chronic Cholecystitis Without Calculus Post-op diagnosis: same Procedure performed: laparoscopic cholecystectomy Description of procedure: The patient was taken to the operating room placed in the supine position. After adequate induction of general anesthesia, the patient was prepped and draped in normal sterile fashion. A time-out was then performed to verify the patient's identity as well as the procedure being performed. I then made a 5 mm incision in the infraumbilical region. Through this, a Veress needle was placed into the peritoneal cavity and CO2 gas was then insufflated. After adequate pneumoperitoneum was achieved, the Veress needle was removed and a 5 mm trocar was placed through this incision. I then placed the laparoscope through this trocar site and under direct visualization placed a further 12 mm subxiphoid port as well as 2 additional 5 mm ports in the right upper abdomen. The gallbladder was then identified and was noted to be slightly inflamed. I was able to place a grasper at the dome of the gallbladder and this was retracted anterior and cephalad up over the liver. A 2nd retractor was then placed at the infundibulum and retracted laterally, this allowed visualization of the triangle of Calot. I then was able to visualize the cystic duct in its entirety from its proximal insertion into the gallbladder, to its distal junction with the common hepatic/common bile duct junction. At this point, I carefully skeletonized the proximal cystic duct with the [place] dissector. I then clipped and transected the proximal cystic duct. Next I visualized the cystic artery. Again the artery was skeletonized, clipped, and transected. I then used the Bovie cautery to take down the peritoneal attachments of the gallbladder off the liver bed. Once the gallbladder specimen was completely detached, an endo-pouch was placed through the 12 mm port site. I then placed the gallbladder specimen into the Endo pouch and removed the endo-pouch from the 12 mm port site. The specimen will now be sent to pathology for further review. I then copiously irrigated the right upper quadrant. Hemostasis was noted in the liver bed, the clips were noted to be in good position on both the cystic duct stump and the cystic artery stump. No other pathology was noted in the right upper quadrant. I then moved the laparoscope to the subxiphoid port. No iatrogenic injury or other pathology was noted in the lower abdomen. At this point, the abdomen was desufflated and all ports removed. The fascia of the 12 mm subxiphoid port was closed with a 0 Vicryl figure of 8 suture. All port sites were then closed with 4.O Monocryl subcuticular sutures. Dermabond was placed on each incision. The patient tolerated the procedure well, was extubated in the operating room postoperative and will be transferred to the recovery room in stable condition. Implants: none Anesthesia: GETA Surgeon: Jamia Keyes MD Estimated blood loss (mL): 5 Drains: No Packing: No Pathology: yes Complications: No immediate complications Condition: stable Disposition: PACU Findings: chronic cholecystitis
[2020-04-13] MEDS: fentaNYL CITRATE INJ (*CRX) 100 MCG/2 ML VIAL 25 MCG IV PUSH ×2 (08:53→08:57)
[2020-04-13] MEDS: ONDANSETRON INJ 4 MG/2 ML VIAL IV PUSH (09:21)
[2020-04-13] MEDS: diphenhydrAMINE HCl INJ 50 MG/ML VIAL 12.5 MG IV PUSH (10:04)
== END 2020-04-13 11:00 | disposition home or self-care (01) ==
PROVIDERS: PCP Family Medicine; Visit Provider Surgery
PROC: 0FT44ZZ Resection of Gallbladder, Percutaneous Endoscopic Approach (ICD-10-PCS; CPT 47562; principal; 2020-04-13 07:30)
DX: K80.10 Calculus of gallbladder with chronic cholecystitis without obstruction (principal); F41.9 Anxiety disorder, unspecified; F32.9 Major depressive disorder, single episode, unspecified; Z87.442 Personal history of urinary calculi; E66.9 Obesity, unspecified; Z68.34 Body mass index [BMI] 34.0-34.9, adult; Z86.14 Personal history of Methicillin resistant Staphylococcus aureus infection
CPT/HCPCS: 47562; 88304; A9270; J0690; J1100; J1200; J1885; J2250; J2405; J2704; J2710; J3010; J7030; J7120

== ENCOUNTER 2022-10-17 17:50 | Emergency (ER) | payer OTHER, SELFPAY ==
--- NOTE | ~2022-10-17 | XR_ITS ---
EXAMINATION: XR chest 2V Exam Date/Time: 10/17/2022 18:40 CDT HISTORY: cough, fever/chills, r/o pna Comparison: 10/07/2019. RESULT: Lines, tubes, and devices: Cholecystectomy clips. Lungs and pleura: Linear scar/atelectasis in the left lung base. No focal consolidation, effusion, o r pneumothorax. Cardiomediastinal silhouette: Stable. Other: No acute osseous or upper abdominal finding. IMPRESSION: No acute cardiopulmonary process. Reviewed, dictated and finalized at location K.
[2022-10-17 17:55] VITALS: BP 111/63; PULSE 109; RESP 20; TEMP 37; O2SAT 98
--- NOTE | 2022-10-17 19:02 | ED.URI ---
HPI - URI/Sore Throat General Chief Complaint: Upper Respiratory Infection Stated Complaint: cough Time Seen by Provider: 10/17/22 18:22 Source: patient Mode of arrival: ambulatory Limitations: no limitations History of Present Illness HPI Narrative: Patient is a 31-year-old female who presents to the ED with c/o cough and fevers. Patient reports having upper respiratory symptoms for the last 2 days, including cough, congestion, sinus pressure, rhinorrhea, sore throat, intermittent fevers. Her son was sick for several days with similar symptoms prior to her developing symptoms. Patient was seen at an urgent care today and tested negative for COVID and strep. Son tested negative for RSV. She was referred here for to have a chest x-ray. Patient denies any production of sputum with her cough. She did last report fever today, for which she took Tylenol at home. Denies any significant shortness of breath, chest pain, nausea, vomiting, abdominal pain. Related Data Allergies Allergy/AdvReac Type Severity Reaction Status Date / Time codeine AdvReac Mild Nausea and Verified 10/17/22 17:51 Vomiting Review of Systems Review of Systems: CONSTITUTIONAL: See HPI. ENT: See HPI. CARDIOVASCULAR: Denies chest pain. RESPIRATORY: See HPI. GASTROINTESTINAL: Denies abdominal pain, nausea, vomiting, or diarrhea. All systems reviewed & are unremarkable except as noted in HPI and below PMFSH Past Medical History Medical History Adult BMI 36.0-36.9 kg/sq m Anxiety Depression History of kidney stones History of MRSA infection inner thigh, 2012 - treated outpatient Obesity (BMI 30-39.9) Patient denies significant medical history Surgical History Surgical History Dislocation of proximal interphalangeal joint of finger Hx laparoscopic cholecystectomy 04/13/20 S/P ovarian cystectomy Family History Family History Grandparent Family history of osteoarthritis Diabetes mellitus Hypertension Family history of malignant neoplasm of kidney Family history of malignant neoplasm of urinary bladder Lymphoma Asthma Hypothyroid Cataract Mother Hypertension Bipolar 1 disorder Social History Social History Smoking status: Never smoker Alcohol intake: never Substance use: never Living arrangements: with family Occupation/Education: unemployed Gender identity (if verbalized by the patient): Female Spiritual care concerns: No Exam Narrative: GENERAL: Well appearing, obese with BMI of 34, non-toxic, in no acute distress. HEAD: Normocephalic, atraumatic. ENT: MMs moist. Nasal quality to voice. NECK: Supple. No adenopathy, no masses. RESPIRATORY: Airway patent, respirations nonlabored. Clear to auscultation bilaterally, no rales, rhonchi, wheezing. No focal lung sounds. CARDIOVASCULAR: Regular rate and rhythm without murmurs, rubs, or gallops. Radial pulses 2+ and equal bilaterally. MUSCULOSKELETAL: Moves all extremities. Strength/ROM intact without gross deformities. SKIN: Warm, dry, normal color. No rashes. NEURO: A&O X3. Speech clear. Cranial nerves II-XII grossly intact. Steady gait. No ataxic movements. PSYCHIATRIC: Appropriate mood and affect. Normal interaction. Course Vital Signs Vital signs: Vital Signs Temperature 98.6 F 10/17/22 17:55 Pulse Rate 109 H 10/17/22 17:55 Respiratory Rate 20 10/17/22 17:55 Blood Pressure 111/63 10/17/22 17:55 Pulse Oximetry 98 10/17/22 17:55 Temperature 98.6 F 10/17/22 21:42 Pulse Rate 98 10/17/22 21:42 Respiratory Rate 18 10/17/22 21:42 Blood Pressure 120/78 10/17/22 21:42 Pulse Oximetry 100 10/17/22 21:42 Oxygen Delivery Room Air 10/17/22 18:57 MDM - URI/Sore Throat MDM [facility]
--- NOTE | 2022-10-17 19:11 | PC.NURSE ---
Patient report given to KATI Mccann. All questions answered and care of patient transferred.
--- NOTE | 2022-10-17 19:20 | PC.NURSE ---
This RN took over care of patient.
--- NOTE | 2022-10-17 20:32 | PC.NURSE ---
This RN called main lab to get an update on a flu A and B swab that was still pending from 1958. Farrukh from main lab stated he was up in the ED currently and would check on the status of the swab.
[2022-10-17] MEDS: IBUPROFEN 600 MG TABLET PO (20:53)
--- NOTE | 2022-10-17 21:27 | PC.NURSE ---
This Rn called lab again and Farrukh stated that lab ran the flu test as a strep test and was not sure if he could run the swab again. This RN informed EDP.
[2022-10-17 21:42] VITALS: BP 120/78; PULSE 98; RESP 18; TEMP 37; O2SAT 100
[2022-10-17 22:00] LABS: Influenza A QL RT-PCR Negative (Negative); Influenza B QL RT-PCR Negative (Negative)
== END 2022-10-17 21:44 | disposition home or self-care (01) ==
PROVIDERS: Emergency Provider Physician Assistant; PCP Family Medicine
DX: J06.9 Acute upper respiratory infection, unspecified (principal); E66.9 Obesity, unspecified; Z68.34 Body mass index [BMI] 34.0-34.9, adult; Z90.49 Acquired absence of other specified parts of digestive tract; Z86.14 Personal history of Methicillin resistant Staphylococcus aureus infection; Z87.442 Personal history of urinary calculi
CPT/HCPCS: 71046; 87502; 99283; A9270

== ENCOUNTER 2022-12-14 16:33 | Outpatient (CLI) | payer OTHER, SELFPAY ==
--- NOTE | ~2022-12-14 | CT_ITS ---
EXAMINATION: CT abdomen pelvis w con DATE: 12/14/2022 17:10 INDICATION: R10.9 - Unspecified abdominal pain TECHNIQUE: Computed tomography (CT) of the abdomen and pelvis was performed with 100 mL Omnipaque-350 intravenous contrast. Automated exposure control and iterative reconstruction technique were employe d. The dose-length product was 1272.59 mGy-cm. COMPARISON: 04/03/2020. FINDINGS: Lower thorax: Mild dependent left lower lobe atelectasis. Liver: 1 cm peripheral right lower lobe hypodensity, likely hemangioma. Biliary/Gallbladder: Gallbladder is absent. No bile duct dilation. Pancreas: No mass or duct dilation. Spleen: Normal. Adrenals:No mass. Kidneys: No mass, stone, or hydronephrosis. GI tract: Mild distal esophageal and gastric wall edema. No small or large bowel dilation. Normal enmanuel endix. Mild diverticulosis without diverticulitis. Mesentery/Peritoneum: No ascites, mass, or free air. Retroperitoneum: No mass. Pelvis: Pelvic organs are within normal limits. Soft Tissues: Soft tissues and body wall unremarkable. Bones: No acute osseous finding. IMPRESSION: Mild esophagitis/gastritis. Otherwise unremarkable CT abdomen and pelvis findings. Reviewed, dictated and finalized at location K.
== END 2022-12-14 16:34 | disposition home or self-care (01) ==
PROVIDERS: PCP Family Medicine; Visit Provider Nurse Practitioner Family
DX: K20.90 Esophagitis, unspecified without bleeding (principal); R10.819 Abdominal tenderness, unspecified site; R10.9 Unspecified abdominal pain; R19.7 Diarrhea, unspecified
CPT/HCPCS: 74177; Q9967

== ENCOUNTER 2023-08-01 20:48 | Emergency (ER) | payer OTHER, SELFPAY ==
[2023-08-01 20:58] VITALS: BP 117/79; PULSE 87; RESP 18; TEMP 36.7; O2SAT 99
--- NOTE | 2023-08-01 21:48 | ED.FEMALEGU ---
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 Reports she started her period yesterday. The bleeding today has been much more heavy than usual which prompted her to be seen. Reports some mild pelvic cramping. Denies fever, dysuria or hematuria. Related Data Allergies Allergy/AdvReac Type Severity Reaction Status Date / Time codeine AdvReac Mild Nausea and Verified 08/01/23 22:07 Vomiting Review of Systems Review of Systems: CONSTITUTIONAL: Denies fever GASTROINTESTINAL: Denies abdominal pain, nausea, vomiting GENITOURINARY: Denies dysuria or hematuria. All systems reviewed & are unremarkable except as noted in HPI and below PMFSH Past Medical History Medical History Adult BMI 36.0-36.9 kg/sq m Anxiety Depression History of kidney stones History of MRSA infection inner thigh, 2012 - treated outpatient Obesity (BMI 30-39.9) Patient denies significant medical history Surgical History Surgical History Dislocation of proximal interphalangeal joint of finger Hx laparoscopic cholecystectomy 04/13/20 S/P ovarian cystectomy Family History Family History Grandparent Family history of osteoarthritis Diabetes mellitus Hypertension Family history of malignant neoplasm of kidney Family history of malignant neoplasm of urinary bladder Lymphoma Asthma Hypothyroid Cataract Mother Hypertension Bipolar 1 disorder Social History Social History Smoking status: Never smoker Alcohol intake: never Substance use: never Living arrangements: with family Occupation/Education: unemployed Gender identity (if verbalized by the patient): Female Spiritual care concerns: No Exam Narrative: GENERAL: Well-appearing, well-nourished, and in no acute distress. HEAD: Normocephalic, atraumatic. EYES: EOMI. CHEST: Clear to auscultation. No respiratory distress. No wheezes rales or rhonchi HEART: Regular rate and rhythm. No murmur heard. Normal peripheral pulses. ABDOMEN: Soft, nondistended, normal active bowel sounds. No CVA tenderness EXTREMITIES: Normal range of motion. No edema. SKIN: Warm, dry, no rash. NEURO: No focal deficits. Alert and oriented x3. PSYCH: Normal mood and affect PELVIC: Normal external genitalia. Normal appearing cervix. Small amount of dark red blood in the vaginal vault Course Course Emergency Course: Patient updated on workup and agrees with plan of care Vital Signs Vital signs: Vital Signs Temperature 98.0 F 08/01/23 20:58 Pulse Rate 87 08/01/23 20:58 Respiratory Rate 18 08/01/23 20:58 Blood Pressure 117/79 08/01/23 20:58 Pulse Oximetry 99 08/01/23 20:58 Oxygen Delivery Room Air 08/01/23 20:58 Temperature 98.0 F 08/01/23 20:58 Pulse Rate 91 08/01/23 22:24 Respiratory Rate 18 08/01/23 20:58 Blood Pressure 115/87 08/01/23 22:24 Pulse Oximetry 99 08/01/23 20:58 Oxygen Delivery Room Air 08/01/23 20:58 MDM - Female Genitourinary MDM Narrative Medical decision making narrative: Patient presents to the ER for AUB. Reporting heavier menstrual period than usual. Her blood pressure is stable. Hemoglobin is normal. No concerning amount of bleeding on exam. test is negative. UA with RBCs, likely from her menstrual cycle. Also white blood cells, patient is asymptomatic. Will send for culture. Patient updated on workup and agrees with plan of care. 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 She was given warnings
[2023-08-01 21:55] LABS: Basophils Percent Auto 0.5 % (0.2-1.2); Eosinophils Absolute Auto 0.1 K/mm3 (0-0.3); Eosinophils Percent Auto 0.8 % (0-4.4); Hematocrit 38.2 % (37.0-47.0); Hemoglobin 12.9 g/dL (12.0-15.0); Immature Granulocyte Absolute 0.02 K/mm3 (0.00-0.031); Immature Granulocyte Percent A 0.2 % (0-0.5); Lymphocytes Percent Auto 22.6 % (18.3-44.2); Mean Corpuscular HGB Conc 33.8 g/dl (32-36); Mean Corpuscular Hemoglobin 31.7 pg (26-34); Mean Corpuscular Volume 93.9 fl (80-100); Mean Platelet Volume 9.9 fl (7.4-10.4); Monocytes Absolute Auto 0.6 K/mm3 (0.1-0.6); Monocytes Percent Auto 6.8 % (2.6-8.5); Neutrophils Absolute Auto 5.8 K/mm3 (1.3-6.7); Neutrophils Percent Auto 69.1 % (45.5-73.1); Platelet Count Result 340 k/mm3 (150-375); Red Blood Count 4.07 M/mm3 (4.2-5.4); Red Cell Distribution Width 13.1 % (11.5-14.5); White Blood Count 8.4 K/mm3 (4.5-10.0)
[2023-08-01 22:07] LABS: Anion Gap 6 mmol/L (4-12); Blood Urea Nitrogen 9 mg/dL (7-17); Calcium 9.3 mg/dL (8.4-10.2); Carbon Dioxide 27 mmol/L (22-30); Chloride 105 mmol/L (98-107); Estimated CRCL calculation 110 ml/min; Estimated Glomerular Filt Rate > 60; Glucose 95 mg/dL (65-110); Potassium 3.9 mmol/L (3.4-5.0); Sodium 138 mmol/L (137-145)
[2023-08-01 22:22] VITALS: BP 127/80; PULSE 72
[2023-08-01 22:23] VITALS: BP 127/87; PULSE 101
[2023-08-01 22:24] VITALS: BP 115/87; PULSE 91
[2023-08-01 22:24] LABS: Appearance Urine Clear (Clear); Bacteria Urine None Seen /hpf; Bilirubin Urine Negative (Negative); Blood Urine 3+ (Negative); Color Urine Yellow (Yellow); Glucose Urine UA Negative (Negative); Ketones Urine Negative (Negative); Leukocyte Esterase Ur 1+ LEU/UL (Negative); Nitrate Urine Negative (Negative); Non Pathogenic Casts 0-2; Protein Urine Negative (Negative); RBC Urine >100 /hpf (0-2); Specific Grav Ur 1.022 (1.001-1.035); Squamous Epithelial Cell Urine None Seen /hpf (Few)
[2023-08-01 22:28] LABS: Add Urine Microscopic? YES
[2023-08-01 23:25] VITALS: BP 124/87; PULSE 88; RESP 16; TEMP 36.7; O2SAT 99
== END 2023-08-01 23:26 | disposition home or self-care (01) ==
PROVIDERS: Emergency Provider Physician Assistant; PCP Family Medicine
DX: N93.9 Abnormal uterine and vaginal bleeding, unspecified (principal); R82.81 Pyuria; E66.9 Obesity, unspecified; Z68.31 Body mass index [BMI] 31.0-31.9, adult; Z87.442 Personal history of urinary calculi; Z86.14 Personal history of Methicillin resistant Staphylococcus aureus infection; Z90.49 Acquired absence of other specified parts of digestive tract
CPT/HCPCS: 36415; 80048; 81001; 81025; 85025; 87086; 99284

== ENCOUNTER 2023-10-31 14:51 | Outpatient (CLI) | payer OTHER, SELFPAY ==
--- NOTE | ~2023-10-31 | XR_ITS ---
EXAM: XR foot LT min 3V DATE: 10/31/2023 15:18 HISTORY: S99.929A - Unspecified injury of unspecified foot, initia... . COMPARISON: None available. FINDINGS: Normal mineralization. No fracture or dislocation. No lytic or blastic lesion. Mild degene rative changes at the first and fifth MTP joints and the fifth proximal interphalangeal joint. Minima l plantar and Achilles enthesopathy. No erosion or periosteal change. Soft tissues within normal limi ts. IMPRESSION: No acute osseous finding in the left foot. Reviewed, dictated and finalized at location K.
== END 2023-10-31 14:52 | disposition home or self-care (01) ==
LOC: ANHIMG 15:03
PROVIDERS: PCP Family Medicine; Visit Provider Nurse Practitioner Family
DX: S99.929A Unspecified injury of unspecified foot, initial encounter (principal); X58.XXXA Exposure to other specified factors, initial encounter
CPT/HCPCS: 73630

== ENCOUNTER 2024-04-22 09:43 | Outpatient (CLI) | payer OTHER, SELFPAY ==
[2024-04-22 10:08] LABS: Basophils Percent Auto 0.5 % (0.2-1.2); Eosinophils Absolute Auto 0.1 K/mm3 (0-0.3); Eosinophils Percent Auto 0.7 % (0-4.4); Hematocrit 37.3 % (37.0-47.0); Hemoglobin 12.5 g/dL (12.0-15.0); Immature Granulocyte Absolute 0.03 K/mm3 (0.00-0.031); Immature Granulocyte Percent A 0.4 % (0-0.5); Lymphocytes Absolute Auto 1.25 K/mm3 (0.9-3.2); Lymphocytes Percent Auto 14.8 % (18.3-44.2); Mean Corpuscular HGB Conc 33.5 g/dl (32-36); Mean Corpuscular Hemoglobin 31.7 pg (26-34); Mean Corpuscular Volume 94.7 fl (80-100); Mean Platelet Volume 9.8 fl (7.4-10.4); Monocytes Absolute Auto 0.7 K/mm3 (0.1-0.6); Monocytes Percent Auto 7.7 % (2.6-8.5); Neutrophils Absolute Auto 6.4 K/mm3 (1.3-6.7); Neutrophils Percent Auto 75.9 % (45.5-73.1); Platelet Count Result 315 k/mm3 (150-375); Red Blood Count 3.94 M/mm3 (4.2-5.4); White Blood Count 8.4 K/mm3 (4.5-10.0)
[2024-04-22 10:59] LABS: HIV 1/2 Ab P24 Ag Result Negative (Negative)
[2024-04-22 11:37] LABS: Hepatitis B Surface Antigen Negative (Negative)
[2024-04-22 13:21] LABS: Rapid Plasma Reagin Non-Reactive (NonReactive)
[2024-04-23 07:34] LABS: CMV IgG Antibody <0.60 U/mL
== END 2024-04-22 09:44 | disposition home or self-care (01) ==
LOC: ANHLAB 09:45
PROVIDERS: PCP Family Medicine; Visit Provider Student in an Organized Health Care Education/Training Program
DX: N94.89 Other specified conditions associated with female genital organs and menstrual cycle (principal)
CPT/HCPCS: 36415; 84702; 85025; 86592; 86644; 86703; 86747; 86762; 86787; 86850; 86900; 86901; 87086; 87340; G0432

== ENCOUNTER 2024-05-08 15:26 | Outpatient (CLI) | payer OTHER, SELFPAY ==
--- NOTE | ~2024-05-08 | US_ITS ---
EXAMINATION: US OB <=14 wk fetus w TV DATE: 05/08/2024 16:20 INDICATION: with uncertain dates. TECHNIQUE: Real-time transabdominal and transvaginal pelvic ultrasound was performed. COMPARISON: None. FINDINGS: TRANSABDOMINAL ULTRASOUND: The uterus measures 11.1 x 5.5 x 8.2 cm. TRANSVAGINAL ULTRASOUND: There is an intrauterine gestational sac. A yolk sac is identified. The fet al crown rump length measures 0.9 cm, which correlates with an estimated gestational age of 7 weeks a nd 0 day(s) (+/-) 4 day(s). heart motion is identified measuring 153 beats per minute (bpm) by M-mode Doppler. The right ovary measures 3.4 x 2.6 x 3.0 cm. The left ovary measures 3.6 x 1.4 x 1.2 cm. There is no free fluid in the pelvis. IMPRESSION: 1. Single living intrauterine gestation with estimated date of delivery of 12/25/2024. Reviewed, dictated and finalized at location A. TRICIAN IMPRESSION: 1. Single living intrauterine gestation with estimated date of delivery of 11/30.
== END 2024-05-08 15:27 | disposition home or self-care (01) ==
PROVIDERS: PCP Family Medicine; Visit Provider Student in an Organized Health Care Education/Training Program
DX: O26.899 Other specified pregnancy related conditions, unspecified trimester (principal); N94.89 Other specified conditions associated with female genital organs and menstrual cycle; Z3A.00 Weeks of gestation of pregnancy not specified
CPT/HCPCS: 76801; 76817

== ENCOUNTER 2024-06-12 11:04 | Emergency (ER) | payer OTHER, SELFPAY ==
[2024-06-12 11:06] VITALS: BP 112/61; PULSE 99; RESP 16; TEMP 36.4; O2SAT 100
--- OUTSIDE RECORDS SUMMARY | 2024-06-12 11:53 | XMS_ITS ---
Author Organization [facility] Address [address] [place] [address] Care Team Providers Care Supervisor Of Communications Name Role Phone SUN ÁLVAREZ Unavailable [phone] REASON FOR VISIT [facility] new member, could not reach pt; LVMTCB Medications Medication SIG (Take, Route, Frequency, Duration) Notes Start Date End Date Status Vyvanse 50 MG 1 capsule in the mor kvng Orally Once a day Active Xanax 0.5 MG 1 tablet Orally Twice a day Active Encounters Encounter Location Date Provider Diagnosis Redirect [place] [address] [place] [address] 10/10/2023 SUN ÁLVAREZ Plan Of Treatment No Information Progress Notes * Meghna CUELLODOB:1990 (5 0 yo F)Acc No.[id number]:10/10/2023 Patient: Meghna LAKE Provider: LESLY Guzman :1990 A ge:32 Y S ex:Female Date:10/10/2023 Address:[address] [facility] Subjective: * Chief Complaints: * 1 . [facility] new member. 2. could not reach pt; LVMTCB. * Medical History: A DHD, Anxiety Disorder. * Medications: T aking Xanax 0.5 MG Tablet 1 tablet Orally Twice a day , Taking Vyvanse 50 MG Capsule 1 capsule in the morning Orally Once a day Objective: * Vitals: Assessment: Plan: * Treatment: * Billing Information: * Visit Code: * Procedure Codes: * Sign off status: Completed true * Provider: LESLY Guzman Date: 0 10/10/2023 Generated for Alexis Sheehan/Silvana on: 0 06/12/2024 10:52 AM MST
--- OUTSIDE RECORDS SUMMARY | 2024-06-12 11:53 | XMS_ITS ---
Author Organization [facility] Address [address] [place] [address] Care Team Providers Care Glass Technician Name Role Phone KOFI NICHOLSON Unavailable [phone] Reason For Referral Reason JOSE Mcgill [address] [place] [address] HTGR: No appts noted Diagnosis 1 Follow up (Z09) Referral Organization [facility] Referring Provider First Name KOFI Referring Provider Last Name LYN Referring Provider Speciality Family Med icine Referred Provider Specialty Physician As sistant Referral Priority Routine REASON FOR VISIT [place]/HTGR Medications Medication SIG (Take, Route, Frequency, Duration) Notes Start Date End Date Status Vyvanse 50 MG 1 capsule in the mor kvng Orally Once a day Active Xanax 0.5 MG 1 tablet Orally Twice a day Active Encounters Encounter Location Date Provider Diagnosis [facility] [address] [place] [address] 10/10/2023 KOFI NICHOLSON Plan Of Treatment Referrals Referral Date Details 10/10/2023 10/10/2023, JOSE Dexter [place] [address] HTGR: No appts noted Progress Notes * Meghna CUELLODOB:1990 (5 0 yo F)Acc No.[id number]:10/10/2023 Patient: Meghna LAKE :1990 A ge:32 Y S ex:Female Address:[address] [place] [address] Subjective: * Chief Complaints: * I L/HTGR * Medical History: * Surgical History: * Hospitalization/Major Diagno stic Procedure: * Medications: T akingXanax 0.5 MG Tablet 1 tablet Orally Twice a day Vyvanse 50 MG Capsule 1 capsule in the morning Orally Once a day Taking Xanax 0.5 MG Tablet 1 tablet Orally Twice a day Taking Vyvanse 50 MG Capsule 1 capsule in the morning Orally Once a day Objective: * Vitals: * Physical Examination: Assessment: Plan: * Treatment: * Procedure Codes: * true * Date: Generated for Alexis blancas/Horace/eTransmitting on: 0 06/12/2024 10:52 AM [facility] Consultation Request Notes Referral Date Referring Provider Referred Provider Not es 10/10/2023 KOFI NICHOLSON [place] - Abby B eedy [address] [place] [address] HTGR: No appts noted
--- OUTSIDE RECORDS SUMMARY | 2024-06-12 13:38 | XMS_ITS | Patient Health Record ---
Author Organization [facility] Address [address] [place] [address] Care Team Providers Care Core Dipper Name Role Phone KOFI NICHOLSON Unavailable [phone] SUN ÁLVAREZ Unavailable [phone] Reason For Referral Reason JOSE - Zuly Mcgill [address] [facility] [place] [address] HTGR: No appts noted Diagnosis 1 Follow up (Z09) Referral Organization [facility] Referring Provider First Name KOFI Referring Provider Last Name NICHOLSON Referring Provider Speciality Family Med icine Referred Provider Specialty Physician As sistant Referral Priority Routine Medications Medication SIG (Take, Route, Frequency, Duration) Notes Start Date End Date Status Vyvanse 50 MG 1 capsule in the mor kvng Orally Once a day Active Xanax 0.5 MG 1 tablet Orally Twice a day Active Encounters Encounter Location Date Provider Diagnosis [facility] [address] [place] [address] 10/10/2023 KOFI NICHOLSON [facility] [address] [place] [address] 10/10/2023 SUN ÁLVAREZ Plan Of Treatment No Information Insurance Providers Payer Name Payer Address Payer Phone Subscriber Number Group Number Insured Name Patient Relationship to Insured Coverage Start Date Coverage End Date [employer] [id number] [place] [id number] [phone] [id number] Meghna Cuello Self - patient is the insured 4 4 Medical (General) History Medical History History ICD Code ADHD Anxiety Disorder
[2024-06-12] MEDS: ACETAMINOPHEN 500 MG TABLET 1000 MG PO (14:04)
[2024-06-12] MEDS: METOCLOPRAMIDE HCL INJ 10 MG/2 ML VIAL IM (14:04)
[2024-06-12 14:35] LABS: Add Urine Microscopic? YES; Appearance Urine Cloudy (Clear); Bacteria Urine 1+ /hpf; Bilirubin Urine Negative (Negative); Blood Urine Negative (Negative); Color Urine Dark Yellow (Yellow); Glucose Urine UA Negative (Negative); Ketones Urine 4+ mg/dL (Negative); Leukocyte Esterase Ur 1+ LEU/UL (Negative); Nitrate Urine Negative (Negative); Non Pathogenic Casts 0-2; Protein Urine Trace mg/dL (Negative); RBC Urine 0-2 /hpf (0-2); Specific Grav Ur 1.028 (1.001-1.035); Squamous Epithelial Cell Urine Many /hpf (Few); pH Urine 5.5 (5.0-9.0)
[2024-06-12] MEDS: CEFDINIR 300 MG CAPSULE PO (15:18)
--- NOTE | 2024-06-12 18:21 | ED.ABDPAIN ---
HPI - Abdominal Pain General Chief Complaint: Abdominal Pain Stated Complaint: 12 wks preg, abd pain Time Seen by Provider: 06/12/24 13:27 History of Present Illness HPI narrative: Patient who is around 12 weeks presents here with some lower abdominal pain, bilateral, worse with certain movements. No vaginal bleeding or discharge. Also has some occasional nausea and headache. Related Data Allergies Allergy/AdvReac Type Severity Reaction Status Date / Time codeine AdvReac Mild Nausea and Verified 06/12/24 11:08 Vomiting Review of Systems Review of Systems: All systems reviewed & are unremarkable except as noted in HPI and below PMFSH Past Medical History Medical History Localized macular rash Candidiasis of breast Rapid heart rate Abnormal weight gain Encounter to establish care Dizziness Migraine Foot injury (normal spontaneous vaginal delivery) Cramping affecting , antepartum IUP (intrauterine ), incidental Urinary symptom or sign Encounter for surgical aftercare following surgery on the digestive system Abdominal tenderness Abdominal pain Diarrhea Esophagitis with gastritis Chronic cholecystitis with calculus Chronic cholecystitis Depression Anxiety Anxiety and depression Suppression of menses Scalp irritation History of MRSA infection inner thigh, 2012 - treated outpatient Anxiety History of kidney stones Depression Patient denies significant medical history Surgical History Surgical History H/O hammer toe correction Hx laparoscopic cholecystectomy 04/13/20 Dislocation of proximal interphalangeal joint of finger S/P ovarian cystectomy Family History Family History Grandparent Family history of osteoarthritis Diabetes mellitus Hypertension Family history of malignant neoplasm of kidney Family history of malignant neoplasm of urinary bladder Lymphoma Asthma Hypothyroid Cataract Mother Hypertension Bipolar 1 disorder Social History Social History Smoking status: Never smoker Alcohol intake: never Substance use: never Do You Feel Safe in your Home?: Yes Lack of Transportation: No Lack of Food: Never True Current Housing: I Have Housing Concerned About Future Housing: No Difficulty Paying Gas/Electric Bills: No Difficulty Paying for Meds: No Education: Associate Degree Difficulty w/ Childcare or Family Care: No Living arrangements: with family Occupation/Education: unemployed Gender identity (if verbalized by the patient): Female Spiritual care concerns: No Exam Narrative: EXAMINATION OF ORGAN SYSTEMS/BODY AREAS: Constitutional: Vital signs per nursing GENERAL:[No acute distress, non-toxic appearing.] HEAD: Normal with no signs of head trauma. EYES: EOMI, conjunctiva normal ENT: Hearing grossly intact LUNGS: Nonlabored breathing. HEART: [Regular rate and rhythm] ABD: [Soft], [nontender to palpation], no right lower quadrant tenderness EXT: Normal range of motion SKIN: [No rashes or lesions.] NEURO: [Alert and oriented x 3. No gross focal sensory or strength deficits.] PSYCH: Normal affect Course Vital Signs Vital signs: Vital Signs Temperature 97.6 F 06/12/24 11:06 Pulse Rate 99 06/12/24 11:06 Respiratory Rate 16 06/12/24 11:06 Blood Pressure 112/61 06/12/24 11:06 Pulse Oximetry 100 06/12/24 11:06 Oxygen Delivery Room Air 06/12/24 11:06 Temperature 97.6 F 06/12/24 11:06 Pulse Rate 99 06/12/24 11:06 Respiratory Rate 16 06/12/24 11:06 Blood Pressure 112/61 06/12/24 11:06 Pulse Oximetry 100 06/12/24 11:06 Oxygen Delivery Room Air 06/12/24 11:06 MDM - Abdominal Pain MDM Narrative Medical decision making narrative: Patient presenting here with insert intermittent bilateral low for pelvic pain, she is 12 weeks with no dysuria, fevers or chills, does have a slight nausea and headache and she does have history of migraines. Does appear slightly uncomfortable on exam but neurologically intact, abdomen soft without any right lower quadrant tenderness. I did obtain a UA which does show some WBCs bacteria and she is so I will treat this with antibiotics. Bedside ultrasound performed by myself shows intrauterine with normal heart rate and movement. Patient very reassured, feeling better after Tylenol, agreeable to outpatient management with strict return precautions. Lab Data Labs: Lab Results 06/12/24 Range/Units 14:13 Urine Color Dark yellow (Yellow) Urine Appearance Cloudy H (Clear) Urine pH 5.5 (5.0-9.0) Ur Specific [place] 1.028 (1.001-1.035) Urine Protein Trace (Negative) mg/dL Urine Glucose (UA) Negative (Negative) mg/dL Urine Ketones 4+ H (Negative) mg/dL Ur Blood (Man) Negative (Negative) Urine Nitrate Negative (Negative) Urine Bilirubin Negative (Negative) Urine Urobilinogen 1.0 (<2.0) mg/dL Leukocyte Esterase Rfl 1+ H (Negative) CRISTINA/UL Urine RBC 0-2 (0-2) /hpf Urine WBC 11-20 H (0-3) /hpf Ur Squamous Epith Cells Many H (Few) /hpf Urine Bacteria 1+ H /hpf Urine Casts 0-2 Discharge Plan Discharge Clinical Impression: Bacteriuria during Patient Disposition: Home, Self-Care Condition: Stable Instructions: Abdominal Pain in (ED), Urinary Tract Infection in (ED) Additional Instructions: Please take the antibiotics as prescribed, follow-up with your OBGYN in the next 1-2 days. You can take Tylenol as needed for pain. Come back to the emergency room if your symptoms get worse especially if you cannot keep anything down, or if you start having severe pain or bleeding. Patient Language: Khmer Prescriptions: New cefdinir 300 mg capsule 300 mg PO Q12H Qty: 14 0RF No Action bupropion HCl [Wellbutrin XL] 150 mg tablet extended release 24 hr 150 mg PO QAM Qty: 90 1RF duloxetine 30 mg capsule,delayed release(DR/EC) 30 mg PO DAILY Qty: 90 1RF alprazolam [Xanax] 0.5 mg tablet 0.5 mg PO DAILY PRN (Reason: anxiety) Qty: 30 0RF ondansetron 4 mg tablet,disintegrating 4 mg PO Q4-6H PRN (Reason: nausea and vomiting) Qty: 30 2RF Follow-up/Referrals: Davin Mac MD [Primary Care Provider] - 2 Days
== END 2024-06-12 15:22 | disposition home or self-care (01) ==
PROVIDERS: Emergency Provider Emergency Medicine; PCP Student in an Organized Health Care Education/Training Program
DX: O26.891 Other specified pregnancy related conditions, first trimester (principal); R82.71 Bacteriuria; O99.341 Other mental disorders complicating pregnancy, first trimester; F41.9 Anxiety disorder, unspecified; F32.A Depression, unspecified; Z86.14 Personal history of Methicillin resistant Staphylococcus aureus infection; Z87.442 Personal history of urinary calculi; Z90.49 Acquired absence of other specified parts of digestive tract; Z79.899 Other long term (current) drug therapy; Z3A.12 12 weeks gestation of pregnancy
CPT/HCPCS: 81001; 96372; 99283; A9270; J2765

== ENCOUNTER 2024-07-27 04:07 | Outpatient (CLI) | payer OTHER, SELFPAY ==
[2024-07-27] VITALS (38 sets, daily range): BP systolic 96–116; BP diastolic 55–69; PULSE 70–102; O2SAT 97–100
--- NOTE | ~2024-07-27 | XR_ITS ---
EXAMINATION: XR chest 1V portable DATE: 07/27/2024 05:16 INDICATION: Cough. TECHNIQUE: A single frontal view of the chest was obtained. COMPARISON: Chest 2 views 10/17/2022 FINDINGS: There is no pneumonia, pleural effusion, or pneumothorax. The heart size is normal. Surgica l clips in the right upper quadrant are likely from cholecystectomy. IMPRESSION: 1. No acute cardiopulmonary disease. Reviewed, dictated and finalized at location A.
--- NOTE | 2024-07-27 04:28 | PC.NURSE ---
Call placed to Dr. Mac. Stated pt c/o dfm, and persistant cough for 9 days. FHR present. Vitals reported. Order for Stat Chest-Xray
--- OUTSIDE RECORDS SUMMARY | 2024-07-27 04:37 | XMS_ITS | Data Portability ---
Author Organization [facility] [email or web address], Main Office Address [address] [place] [address] Care Team Providers Care Bench Press Operator Name Role Phone ADONIS RAJAN Primary Care Provider ADONIS RAJAN Referring Provider [phone] Assessment Encounter Date Assessment Date Assessment LastModified by Organization Details LastModified Time 02/27/2024 02/27/2024 This note is dictated and transcribed by [employer]. K[employer] variances may occur. Despite proofreading, typographical errors may occur. Occasional wrong-word or 'tfwge-w-ehfc' substitutions may have occurred due to the inherent limitations of voice recording. Read the chart carefully and recognize, using context, where substitutions have occurred. Not available 02/27/2024 09:56:24 03/04/2024 03/04/2024 This note is dictated and transcribed by [employer]. Keg Header variances may occur. Despite proofreading, typographical errors may occur. Occasional wrong-word or 'dcgrf-o-raxz' substitutions may have occurred due to the inherent limitations of voice recording. Read the chart carefully and recognize, using context, where substitutions have occurred. [email or web address] Not available 03/04/2024 14:58:19 04/17/2024 04/17/2024 This note is dictated and transcribed by [employer]. Keg Header variances may occur. Despite proofreading, typographical errors may occur. Occasional wrong-word or 'iyyhr-p-rcqx' substitutions may have occurred due to the inherent limitations of voice recording. Read the chart carefully and recognize, using context, where substitutions have occurred. Not available 04/17/2024 15:34:26 Plan of Treatment Reminders Order Date Submit Date Provider Last Modified By Organization Details Last Modified Time Details Appointments None record ed. Lab None record ed. Referral None record ed. Procedures None record ed. Surgeries None record ed. Imaging None record ed. Medication Orders None record ed. Patient TargetsNo targets recorded. Patient InstructionsNo instructions recorded. Reason for Referral None Reported. Problems Name Problem SNOMED Code Status Onset Date Resolution Date Notes Provider Name and Address Organization Details Recorded Time Ganglion cyst of left foot 0691441804928 103 Active 2023 Toby Wright DPM [address] [facility], [place], [address] , [facility] [employer] [facility] 4 09:56:28 Pain in left foot 0878102468164 07 Active 2023 Toby Wright DPM [address] [facility], [place], [address] , [facility] [employer] [facility] 09:56:32 Attention deficit hyperactiv ity disorder 308405680 Active 2023 Roseanne alexandra [facility] [employer] [facility] 10:21:49 Environmen sully allergy 108577490 Active 2023 Roseanne alexandra, [facility] [employer] [facility] 10:21:56 Anxiety 67686708 Active 2023 Roseanne alexandra [facility] [employer] [facility] 10:22:09 Bronchitis 71584690 Active 2023 Roseanne alexandra, [facility] [employer] [facility] 10:23:54 Depressive disorder 84804822 Active 2023 Roseanne alexandra, [facility] [employer] [facility] 10:24:01 Disorder of eye 485219278 Active 2023 Roseanne alexandra [facility] [employer] [facility] 10:24:09 Headache 16123024 Active 2023 Roseanne alexandra, [facility] [employer] [facility] 10:24:15 Migraine 81547482 [facility] [employer] [facility] 10:24:22 Problem Notes None recorded. Procedures Surgical History Date Name Laterality Status Provider Name and Address Organization Details Recorded Time 02/27/20 24 Blank Procedure Note completed Toby Wright, JEWEL [address], [place], [address], [facility] [employer] [facility] 02/27/2024 13:32:41 03/31/20 20 cholecystectomy completed Roseanne Winter [facility] [employer] [facility] 02/27/2024 10:26:41 03/31/20 10 hammer toe operation completed Roseanne Winter [facility] [employer] [facility] 02/27/2024 10:27:17 07/31/19 08 Cyst Removal completed Roseanne Winter [facility] [employer] [facility] 02/27/2024 10:27:37 Imaging Results None recorded. Procedure Notes None recorded. Medical Equipment None Reported. Allergies Allergen ID Allergen Name Allergen Category Reaction Reaction Severity Criticality Documentation Date Start Date Code Code System Note Provider Name and Address Organization Details Recorded Time 49949 codeine medicatio n Not available Not available Not available 02/27/2024 2670 [facility] [employer] [facility] 10:21:03 Medications Name Sig Start Date Stop Date Status Note LastModified by Organization Details LastModified Time phentermine 37.5 mg tablet TAKE 1 TABLET BY MOUTH DAILY 30 MINUTES BEFORE BREAKFAST OR 1-2HOURS AFTER BREAKFAST 02/26 completed Not Available Not Available Not Available alprazolam 0.5 mg tablet TAKE 1 TABLET BY MOUTH DAILY NEEDED FOR ANXIETY active Not Available Not Available No t Available buspirone 10 mg tablet TAKE 1 TABLET BY MOUTH TWICE A DAY 02/26 completed Not Available Not Available Not Available bupropion HCl XL 150 mg 24 hr tablet, extended release TAKE 1 TABLET BY MOUTH EVERY DAY EVERY MORNING active Not Available Not Available No t Available nitrofurant oin monohydrate /macrocryst als 100 mg capsule TAKE 1 CAPSULE BY MOUTH EVERY 12 HOURS, MUST TAKE WITH A MEAL/FOOD 02/26 completed Not Available Not Available Not Available duloxetine 30 mg capsule,del ayed release TAKE 1 CAPSULE BY MOUTH EVERY DAY active Not Available Not Available No t Available duloxetine 60 mg capsule,del ayed release TAKE 1 CAPSULE BY MOUTH DAILY active Not Available Not Available No t Available Vyvanse 30 mg capsule TAKE 1 CAPSULE BY MOUTH EVERY DAY IN THE MORNING 02/26 completed Not Available Not Available Not Available Vyvanse 50 mg capsule TAKE 1 CAPSULE BY MOUTH EVERY DAY active Not Available Not Available No t Available Vyvanse 40 mg capsule TAKE 1 CAPSULE (40 MG) BY MOUTH EVERY MORNING 02/26 completed Not Available Not Available Not Available Vitals Date Recorded Heart rate Respiratory rate Oxygen saturation Oxygen saturation in Arterial blood by Pulse oximetry Systolic blood pressure Diastolic blood pressure Provider Name and Address Organization Details Last Updated DateTime 4 70 /min 14 /min 99 % 99 % 125 mm[Hg] 89 mm[Hg] Kary Busch [facility] [employer] [facility] 4 09:20:38 Date Recorded Body height Body mass index (BMI) Body weight Provider Name and Address Organization Details Last Updated DateTime 02/27/2024 175.26 cm 31 kg/m2 91531.4 g Roseanne Winter [facility] [employer] [facility] 02/27/2024 10:20:52 Date Recorded Body height Body mass index (BMI) Body weight Heart rate Respiratory rate Oxygen saturation Oxygen saturation in Arterial blood by Pulse oximetry Systolic blood pressure Diastolic blood pressure Provider Name and Address Organization Details Last Updated DateTime 4 175.26 cm 31 kg/m2 75803.4 g 83 /min 14 /min 99 % 99 % 139 mm[Hg] 117 mm[Hg] Kary Busch [facility] [employer] [facility] 4 14:11:09 Date Recorded Body height Body mass index (BMI) Body weight Heart rate Respiratory rate Oxygen saturation Oxygen saturation in Arterial blood by Pulse oximetry Systolic blood pressure Diastolic blood pressure Provider Name and Address Organization Details Last Updated DateTime 4 175.26 cm 31 kg/m2 61662.4 g 91 /min 14 /min 99 % 99 % 150 mm[Hg] 99 mm[Hg] Kary Busch [facility] [employer] [facility] 4 15:17:06 Social History Question Answer Notes LastModified by Organizat ion Details LastModified Time Tobacco Smoking Status Never Smoker Roseanne alexandra [facility] 02/27/2024 10:26:22 What Is Your Level Of Alcohol Consumption? Occasional Information not available 02/27/2024 Sex: Unknown Functional Status None recorded. Mental Status None recorded. Family History Relationship Description Onset Age of this Age Resolved Age Notes LastModified by Organization Details LastModified Time Unspecified Relation Diabetes mellitus [facility] OTHER Not available 02/27/2024 10:24:54 Unspecified Relation Cerebrovascu lar accident [facility] OTHER Not available 04/17/2024 15:12:57 Unspecified Relation Hypertensive disorder GR[facility]M OTHER Not available 02/27/2024 10:25:33 Unspecified Relation Heart disease AUNT AND GR[employer]M OTHER Not available 02/27/2024 10:25:51 Unspecified Relation Family history of malignant neoplasm GRANDM OTHER AND GRANDF ATHER Not available 04/17/2024 15:12:57 Mother Arthritis HANDS Not available 04/17/2024 15:12:57 Medical History Condition Response ALLERGIES/HAYFEVER Y DEPRESSION (INCLUDING POST ) Y HEADACHES/MIGRAINES Y ANXIETY DISORDER Y Gynecological HistoryNo gynecological history recorded. Obstetrics History GPAL:G 0 P 0 0 0 0 Past Encounters Encounter ID Performer Location Encounter Start Date Encounter Closed Date Diagnosis/Indication Diagnosis SNOMED-CT Code Diagnosis ICD10 Code Diagnosis Note [id number] Toby Wright DPM [facility] [place] [address] [facility] [facility] [address] [place] [address] 02/27/2024 09:14:21 02/28/2024 11:02:09 Ganglion cyst of left foot 6108925606 473343 M67.472 aspiration ganglion cyst left footBand-A id appliedric e therapycon tinue mild compressio nfollow-up 6 weeks Pain in left foot 293402 5022 07997 M79.672 x-rays negativepr evious hammertoe surgery 4th and 5th toes [id number] Toby Wright DPM [facility] Podiat[facility] [place] [address] [place] [address] 03/04/2024 13:43:28 04/25/2024 15:10:32 Ganglion cyst of left foot 3601849804 408694 M67.472 failed aspiration ganglion cyst left foot- denies aspiration todayrecom mend compressio n sockrecomm end wide soft shoe gearrice therapyfol low-up May for surgical workup Pain in left foot 392803 6754 66267 M79.672 x-rays negativepr evious hammertoe surgery 4th and 5th toes [id number] Toby Wright DPM [facility] [place] [address] [facility] [place] [address] 04/17/2024 15:12:43 04/29/2024 09:26:15 Ganglion cyst of left foot 8704649016 921593 M67.472 failed aspiration ganglion cyst left foot- denies aspiration todayrecom mend compressio n sockrecomm end wide soft shoe gearrice therapyObt ain surgical clearance- will need updated EKG and labsplan for surgery May 10- excision of ganglion left foot Health Concerns Section Related Observation LastModified by Organization Detai ls LastModified Time None Recorded Concern Status LastModified by Organization Details LastModified Time None Recorded Advance Directives Directive None Recorded Payers Encounter Date Sequence Insurance Name Policy Number Policy Espino Covered Member ID Espino Member ID Guarantor Name 02/27/2024 1 [facility] ON OR AFTER 10/29/20 (MEDICAID REPLACEMENT - HMO) Meghna Cuello [id number] Meghna Cuello 03/04/2024 1 [facility] ON OR AFTER 10/29/20 (MEDICAID REPLACEMENT - HMO) Meghna Cuello [id number] Meghna Cuello 04/17/2024 1 [facility] ON OR AFTER 10/29/20 (MEDICAID REPLACEMENT - HMO) Meghna Cuello [id number] Meghna Cuello Notes Date Note Type Note Provider Name and Address Organization Details Recorded Time 02/27/2024 text/html . Patient is a 33-year-old female she presents to the office with complaints of a lump that has developed to the dorsal aspect of her left foot.Patient states the lump has slowly gotten bigger. Patient x-rays she has no cortical or destructive changes through her forefoot. Patient appears to have a ganglion cyst to the area she denies any open wounds or infection she states that it does put pressure on her foot and causes numbness in her toes. Patient denies any other complaints. Toby Wright DPM [address], [place], [address], [employer] 02/27/2024 13:34:32 03/04/2024 text/html . Patient is a 33-year-old female who returns to the office for follow-up on ganglion of the left foot. Patient states that after the aspiration she states that the ganglion came back within 24 hours. Patient states that she has continued pain to the area. Patient denies any signs of infection. I did discuss treatment options I did recommend that she will likely require excision of the ganglion. Patient will return in May for surgical evaluation I did recommend a compression sock to control swelling and to prevent the ganglion from significantly getting big. Patient may return for a repeat aspiration if continues to become problematic. Toby Wright DPM [address] [facility] [address], [place], [address], [employer] 03/04/2024 14:59:07 04/17/2024 text/html . Patient is a 33-year-old female who returns the office for follow-up on ganglion cyst to the dorsal left foot. Patient states that the ganglion on continues to be problematic she has a lot of discomfort and difficulty wearing shoes she denies any open wounds or signs of infection. Patient states when she does not have any shoes on it does not hurt. Patient is scheduled for surgery on May 10. Toby Wright DPM [address] [facility] [address], [place], [address], [employer] 04/17/2024 15:39:07 OBGyn Episode No OBEpisode recorded.
--- OUTSIDE RECORDS SUMMARY | 2024-07-27 04:37 | XMS_ITS | Patient Health Record ---
Author Organization [employer] [facility] Address [address] [place] [address] Care Team Providers Care Speed Winder Name Role Phone KOFI NICHOLSON Unavailable [phone] SUN ÁLVAREZ Unavailable [phone] Reason For Referral Reason JOSE - Zuly Mcgill [address] [facility] [place] [address] HTGR: No appts noted Diagnosis 1 Follow up (Z09) Referral Organization [employer] [facility] Referring Provider First Name KOFI Referring Provider Last Name MCCLELLAND Referring Provider Speciality Family Med icine Referred [...] [address] [place] [address] 10/10/2023 SUN ÁLVAREZ [facility] [address] [place] [address] 10/10/2023 KOFI NICHOLSON Plan Of Treatment No Information Insurance Providers Payer Name Payer Address Payer Phone Subscriber Number Group Number Insured Name Patient Relationship to Insured Coverage Start Date Coverage End Date [employer] [address] [place] [id number] Meghna Cuello Self - patient is the insured 4 4 Medical (General) History Medical History History ICD Code ADHD Anxiety Disorder
--- OUTSIDE RECORDS SUMMARY | 2024-07-27 04:37 | XMS_ITS ---
Author Organization [facility] Address [address] [place] [address] Care Team Providers Care Communication Spec Name Role Phone KOFI NICHOLSON Unavailable [phone] Reason For Referral Reason JOSE Mcgill [address] [place] [address] HTGR: No appts noted Diagnosis 1 Follow up (Z09) Referral Organization [facility] Referring Provider First Name KOFI Referring [...] Active Encounters Encounter Location Date Provider Diagnosis [facility] [address] [place] [address] 10/10/2023 KOFI NICHOLSON Plan Of Treatment Referrals Referral Date Details 10/10/2023 10/10/2023, JOSE [facility] [place] [address] HTGR: No appts noted Progress Notes * Meghna CUELLODOB:1990 ([age] yo F)Acc No.[id number]:10/10/2023 Patient: Meghna LAKE :1990 A ge:32 Y S ex:Female Address:[address] [place] [address] Subjective: * Chief Complaints: * I L/HTGR [...] Date: Generated for Alexis blancas/Horace/eTransmitting on: 0 07/27/2024 02:36 AM [facility] Consultation Request Notes Referral Date Referring Provider Referred Provider Not es 10/10/2023 KOFI NICHOLSON [place] - Abby B eedy [address] [place] [address] HTGR: No appts noted
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
--- OUTSIDE RECORDS SUMMARY | 2024-07-27 04:37 | XMS_ITS ---
Author Organization [facility] Address [address] [place] [address] Care Team Providers Care Manager Mac Name Role Phone SUN ÁLVAREZ Unavailable [phone] REASON FOR VISIT HTGR new member, could not reach pt; LVMTCB Medications Medication SIG (Take, Route, Frequency, Duration) Notes Start Date End Date Status Vyvanse 50 MG 1 capsule in the mor kvng Orally Once a day Active Xanax 0.5 MG 1 tablet Orally Twice a day Active Encounters Encounter Location Date Provider Diagnosis [facility] [place] [address] [place] [address] 10/10/2023 SUN ÁLVAREZ Plan Of Treatment No Information Progress Notes * Meghna CUELLODOB:1990 (5 0 yo F)Acc No.[id number]:10/10/2023 Patient: Meghna LAKE Provider: LESLY Guzman :1990 A ge:32 Y S ex:Female Date:10/10/2023 Address:[address] [facility] Subjective: * Chief Complaints: * 1 . [...] 10/10/2023 Generated for Alexis Sheehan/Silvana on: 0 07/27/2024 02:36 AM MST
--- NOTE | 2024-07-27 06:12 | PC.NURSE ---
Call recieved from Dr. Mac. Update given on pt. Waiting on x-ray to be read. Orders to call back when x-ray results are in.
== END 2024-07-27 07:07 | disposition home or self-care (01) ==
LOC: ANHOBOP 04:33 → ANHOBPP 04:33
PROVIDERS: PCP Student in an Organized Health Care Education/Training Program; Visit Provider Student in an Organized Health Care Education/Training Program
DX: R05.3 Chronic cough (principal)
CPT/HCPCS: 71045; 99199

== ENCOUNTER 2024-10-01 10:08 | Outpatient (CLI) | payer OTHER, SELFPAY ==
--- OUTSIDE RECORDS SUMMARY | 2024-10-01 10:28 | XMS_ITS | Data Portability ---
Author Organization [facility], Telehealth (patients home) Address [address] [place] [address] Assessment Encounter Date Assessment Date Assessment LastModified by Organization Details LastModified Time 07/10/2024 07/10/2024 Met with Shashank today to follow up with her anxiety EPDS 8 GAD7=9 face to face with Shashank for 55 minutes. 21 minutes of that time was spent on psychotherapy [email or web address] Not available 07/10/2024 13:29:10 Plan of Treatment Reminders Order Date Submit Date Provider Last Modified By Organization Details Last Modified Time Details Appointments None record ed. Lab None record ed. Referral None record ed. Procedures None record ed. Surgeries None record ed. Imaging None record ed. Medication Orders None record ed. Patient TargetsNo targets recorded. Patient Instructions Encounter Date Encounter Id Patient Instructions Last Modified By Organization Details Last Modified Time 07/10/2024 [id number] insomnia: care instructions [email or web address] Not available 07/10/2024 13:29:21 Reason for Referral None Reported. Problems Name Problem SNOMED Code Status Onset Date Resolution Date Notes Provider Name and Address Organization Details Recorded Time Anxiety in 505073106696 09 Active 2024 Jodie Jaeger CNM, PMP-BC [address], [place], [address], [facility] 13:13:02 Insomnia 613603050 Active 2024 Jodie Jaeger CNM, PMHNP-BC [address], [place], [address], [facility] 03/12/202 5 13:26:11 Anxiety 94936092 Active 2024 Jodie Jaeger, JERAD, PMP- [address], [place], [address], [facility] 23:31:11 Problem Notes None recorded. Procedures Surgical History Date Name Laterality Status Provider Name and Address Organization Details Recorded Time [facility] 11:12:09 Cholecystectomy completed Debra [facility] 07/10/2024 11:12:15 Imaging Results None recorded. Procedure Notes None recorded. Medical Equipment None Reported. Allergies Allergen ID Allergen Name Allergen Category Reaction Reaction Severity Criticality Documentation Date Start Date Code Code System Note Provider Name and Address Organization Details Recorded Time 176 codeine medicatio n Not available Not available Not available 07/10/2024 2670 RxNorm Debra Dale [facility] 11:06:31 Medications Name Sig Start Date Stop Date Status Note LastModified by Organization Details LastModified Time alprazolam 0.5 mg tablet TAKE 1 TABLET BY MOUTH DAILY NEEDED FOR ANXIETY active Not Available Not Available No t Available benzonatate 100 mg capsule TAKE 1 CAPSULE BY MOUTH TWICE DAILY NEEDED FOR COUGH active Not Available Not Available No t Available ondansetron 4 mg disintegrating tablet DISSOLVE 1 TABLET ON TONGUE AND SWALLOW EVERY 4 TO 6 HOURS NEEDED FOR NAUSEA AND VOMITING active Not Available Not Available No t Available bupropion HCl XL 150 mg 24 hr tablet, extended release TAKE 1 TABLET BY MOUTH EVERY DAY EVERY MORNING active Not Available Not Available No t Available nitrofurantoin monohydrate/ma crocrystals 100 mg capsule TAKE 1 CAPSULE BY MOUTH EVERY 12 HOURS, MUST TAKE WITH A MEAL/FOOD active Not Available Not Available No t Available duloxetine 30 mg capsule,delaye d release Take 1 capsule every day by oral route. active Not Available Not Available No t Available duloxetine 60 mg capsule,delaye d release TAKE 1 CAPSULE BY MOUTH DAILY active Not Available Not Available No t Available Vyvanse 50 mg capsule TAKE 1 CAPSULE BY MOUTH EVERY DAY active Not Available Not Available No t Available Vyvanse 40 mg capsule TAKE 1 CAPSULE (40 MG) BY MOUTH EVERY MORNING active Not Available Not Available No t Available Vitals Date Recorded Body height Body mass index (BMI) Body weight Heart rate Systolic blood pressure Diastolic blood pressure Provider Name and Address Organization Details Last Updated DateTime 175.26 cm 34.1 kg/m2 228683. 84 g 76 /min 114 mm[Hg] 70 mm[Hg] Debra Dlae [facility] 11:06:07 Social History Question Answer Notes LastModified by [employer] Details LastModified Time Tobacco Smoking Status Never Smoker Debra Dale [facility] 07/10/2024 11:11:30 What Is Your Level Of Caffeine Consumption? Occasional [email or web address] Information not available 07/10/2024 Which Illicit Or Recreational Drugs Have You Used? MJ [email or web address] Information not available 07/10/2024 Are There Any Guns Present In Your Home? No [email or web address] Information not available 07/10/2024 Do You Feel Safe In Your Home? Yes Information not available 07/10/2024 Sex: Unknown Functional Status Question Answer Note LastModified by [employer] Details LastModified Time Do you use any illicit or recreational drugs? Yes Information not available 07/10/2024 Do you or have you ever used any other forms of tobacco or nicotine? No [email or web address] Information not available 07/10/2024 What is your level of alcohol consumption? Occasional [email or web address] Information not available 07/10/2024 What is your exercise level? None Information not available 07/10/2024 Mental Status Question Answer Note LastModified by Organization D etails LastModified Time Do you feel stressed (tense, restless, nervous, or anxious, or unable to sleep at night)? [id number] [email or web address] Information not available 07/10/2024 Family History Relationship Description Onset Age of this Age Resolved Age Notes LastModified by Organization Details LastModified Time Maternal Grandmother Malignant tumor of kidney [email or web address] Not available 2024 11:08:19 Maternal Grandmother Diabetes mellitus Not available 2024 11:08:26 Maternal Grandmother Hypertensive disorder [email or web address] Not available 2024 11:08:32 Maternal Grandfather Leukemia [email or web address] Not available 03/2025 11:09:17 Maternal Grandfather Malignant melanoma [email or web address] Not available 2024 11:09:23 Mother Arthritis [email or web address] Not availab le 07/10/2024 11:09:42 Medical History [...] Jaeger CNM, PMP- Main Office [address] [place] [place] [address] 07/10/2024 11:00:51 07/10/2024 16:24:43 Anxiety in 6649097708 9109 F41.9 Continue current management with duloxetine 30 mg PO daily - Encourage non-pharma cological anxiety management techniques - Monitor for worsening symptoms as progresses referals for therapy given plan as long as anxiety and mdd is stable is - Follow up in one month (20 weeks gestation) , then at 36 weeks gestation, and 1-2 weeks Insomnia 284269117 G47.0 0 Discussed cognitive behavioral therapy for [...] Espino Member ID Guarantor Name 07/10/2024 1 [facility] - DOS ON OR AFTER 20 (MEDICAID REPLACEMENT - HMO) Shashank Cuello [id number] Shashank Cuello Notes Date Note Type Note Provider Name and Address Organization Details Recorded Time 07/10/2024 text/html Shashank pandya 16 week s , 2 Para 1. 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 Boyfriend stays when in [...] Jodie Jaeger CNM, PMHNP- [address], [place], [address], [facility] - [facility] 07/10/2024 13:30:11 OBGyn Episode No OBEpisode recorded.
[2024-10-01 11:39] LABS: Hematocrit 31.1 % (37.0-47.0); Hemoglobin 10.4 g/dL (12.0-15.0); Mean Corpuscular HGB Conc 33.4 g/dl (32-36); Mean Corpuscular Hemoglobin 31.7 pg (26-34); Mean Corpuscular Volume 94.8 fl (80-100); Mean Platelet Volume 9.8 fl (7.4-10.4); Platelet Count Result 249 k/mm3 (150-375); Red Blood Count 3.28 M/mm3 (4.2-5.4); Red Cell Distribution Width 13.8 % (11.5-14.5)
[2024-10-01 11:58] LABS: Glucose 1 Hour PP 50gm Dose 115 mg/dL
[2024-10-01 12:36] LABS: HIV 1/2 Ab P24 Ag Result Negative (Negative)
[2024-10-01 16:10] LABS: Syphilis IgG/IgM Antibody Negative (Negative)
== END 2024-10-01 10:09 | disposition home or self-care (01) ==
PROVIDERS: PCP Family Medicine; Visit Provider Student in an Organized Health Care Education/Training Program
DX: Z34.91 Encounter for supervision of normal pregnancy, unspecified, first trimester (principal); Z3A.12 12 weeks gestation of pregnancy
CPT/HCPCS: 36415; 82947; 85027; 86593; 86703; G0432

== ENCOUNTER 2024-10-31 01:33 | Observation (INO) | payer OTHER, SELFPAY ==
[2024-10-31] VITALS (13 sets, daily range): BP systolic 104–115; BP diastolic 62–73; PULSE 80–94; TEMP 36.3; O2SAT 97–100; BMI 35.2
--- NOTE | 2024-10-31 01:33 | PC.NURSE ---
Pt arrives to unit with arm numbness after unplugging her dryer.
--- OUTSIDE RECORDS SUMMARY | 2024-10-31 01:40 | XMS_ITS | Data Portability ---
Author Organization [facility], Telehealth (patients home) Address [address] [place] [address] Assessment Encounter Date Assessment Date Assessment LastModified by Organization Details LastModified Time 07/10/2024 07/10/2024 Met with Shashank today to follow up with her anxiety EPDS 8 GAD7=9 face to face with Shashank for 55 minutes. 21 minutes of that time was spent on psychotherapy [email or web address] Not available 07/10/2024 13:29:10 Plan of Treatment [...] Modified Time 07/10/2024 5790 insomnia: care instructions [email or web address] Not available 07/10/2024 13:29:21 Reason for Referral None Reported. Problems Name Problem SNOMED Code Status Onset Date Resolution Date Notes Provider Name and Address Organization Details Recorded Time Anxiety in 683762088994 09 Active 2024 Jodie Jaeger CNM, PMHNP-BC [address], [place], [address], [facility] [place] 13:13:02 Insomnia 394309420 Active 2024 Jodie Jaeger CNM, PMHNP-BC [address], [place], [address], [facility] [place] 13:26:11 Anxiety 30556853 Active 2024 Jodie Jaeger, CNTalha, PMHNP- [address], [place], [address], [facility] [place] 23:31:11 Problem Notes None recorded. Procedures Surgical History Date Name Laterality Status Provider Name and Address Organization Details Recorded Time hammer toe operation completed [facility] 07/10/2024 11:12:09 Cholecystectomy completed [facility] 07/10/2024 11:12:15 Imaging Results None recorded. Procedure Notes None recorded. Medical Equipment None Reported. Allergies Allergen ID Allergen Name Allergen Category Reaction Reaction Severity Criticality Documentation Date Start Date Code Code System Note Provider Name and Address Organization Details Recorded Time 176 codeine medicatio n Not available Not available Not available 07/10/2024 2670 RxNorm [facility] 11:06:31 Medications Name Sig Start Date Stop [...] Last Updated DateTime 175.26 cm 34.1 kg/m2 603216. 84 g 76 /min 114 mm[Hg] 70 mm[Hg] Debra Dale [facility] 11:06:07 Social History Question Answer Notes LastModified by [email or web address] Details LastModified Time Tobacco Smoking Status Never [facility] [place] 07/10/2024 11:11:30 What Is Your Level Of Caffeine Consumption? Occasional [email or web address] Information not available 07/10/2024 Which Illicit Or Recreational Drugs Have You Used? MJ [email or web address] Information not available 07/10/2024 Are There Any Guns Present In Your Home? No [email or web address] Information not available 07/10/2024 Do You Feel Safe In Your Home? Yes [email or web address] Information not available 07/10/2024 Sex: Unknown Functional Status Question Answer Note LastModified by [email or web address] Details LastModified Time Do you use any illicit or recreational drugs? Yes [email or web address] Information not available 07/10/2024 Do you or have you ever used any other forms of tobacco or nicotine? No [email or web address] Information not available 07/10/2024 What is your level of alcohol consumption? Occasional [email or web address] Information not available 07/10/2024 What is your exercise level? None Information not available 07/10/2024 Mental Status Question Answer Note LastModified by Organization D etails LastModified Time Do you feel stressed (tense, restless, nervous, or anxious, or unable to sleep at night)? [id number] [email or web address] Information not available 07/10/2024 Family History Relationship Description Onset Age of this Age Resolved Age Notes LastModified by Organization Details LastModified Time Maternal Grandmother Malignant tumor of kidney [email or web address] Not available 2024 11:08:19 Maternal Grandmother Diabetes mellitus [email or web address] Not available 2024 11:08:26 Maternal Grandmother Hypertensive disorder [email or web address] Not available 2024 11:08:32 Maternal Grandfather Leukemia [email or web address] Not available 03/2025 11:09:17 Maternal Grandfather Malignant melanoma [email or web address] Not available 2024 11:09:23 Mother Arthritis [email or web address] Not availab le 07/10/2024 11:09:42 Medical History Condition Response ADD/ADHD Y Anxiety Disorder Y Depression/ depression Y Gynecological History Statement/Question [...] Code Diagnosis Note 5790 Jodie Jaeger CNM, PMHNP- Main Office [address] [place] [address] 07/10/2024 11:00:51 07/10/2024 16:24:43 Anxiety in 1257513205 9109 F41.9 Continue current management with duloxetine 30 mg PO daily - Encourage non-pharma cological anxiety management techniques - Monitor for worsening symptoms as progresses referals for therapy given plan as long as anxiety and mdd is stable is - Follow up in one month (20 weeks gestation) , then at 36 weeks gestation, and 1-2 weeks Insomnia 512210363 G47.0 0 Discussed cognitive behavioral therapy for [...] Recorded Advance Directives Directive None Recorded Payers Insurance Date Sequence Insurance Name Policy Number Policy Espino Covered Member ID Espino Member ID Guarantor Name 08/11/2024 1 [facility] - DOS ON OR AFTER 20 (MEDICAID REPLACEMENT - HMO) Shashank Cuello [id number] Shashank Cuello Notes Date Note Type Note [...] soda.- 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 - [facility] 07/10/2024 13:30:11 OBGyn Episode No OBEpisode recorded.
--- OUTSIDE RECORDS SUMMARY | 2024-10-31 01:40 | XMS_ITS | Patient Health Record ---
Author Organization [facility] Address [address] [place] [address] Support Name Relationship Address Phone Meghna Cuello Guarantor Unknown [phone] Reason For Referral No Information Medications Medication SIG (Take, Route, Frequency, Duration) Notes Start Date End Date Status Vyvanse 50 MG 1 capsule in the mor kvng Orally Once a day Active Xanax 0.5 MG 1 tablet Orally Twice a day Active Plan Of Treatment No Information Insurance Providers Payer Name Payer Address Payer Phone Subscriber Number Group Number Insured Name Patient Relationship to Insured Coverage Start Date Coverage End Date [employer] [address] [place] [address] [id number] Meghna Cuello Self - patient is the insured 4 4 Medical (General) History Medical History History ICD Code ADHD Anxiety Disorder
--- OUTSIDE RECORDS SUMMARY | 2024-10-31 01:40 | XMS_ITS | Patient Health Record ---
Author Organization [employer] [facility] [employer] [facility] Address [address] [place] [address] Support Name Relationship Address Phone Meghna Cuello Guarantor Unknown [phone] Reason For Referral No Information Medications Medication SIG (Take, Route, Fr equency, Duration) Notes Start Date End Date Status Xanax 0.5 MG Tablet 1 tablet Orally Twice a day Active Vyvanse 50 MG Capsule 1 capsule in the m orning Orally Once a day Active Plan Of Treatment No Information Insurance Providers Payer Name Payer Address Payer Phone Subscriber Number Group Number Insured Name Patient Relationship to Insured Coverage Start Date Coverage End Date [employer] [address] [place] [address] [id number] Meghna Cuello Self - patient is the insured 4 4 Medical (General) History Medical History History ICD Code ADHD Anxiety Disorder
--- NOTE | 2024-10-31 01:45 | OBADM ---
This patient, Meghna Cuello, admitted to the OB room OB Post 116 for observation. Patient/family oriented to hospital policies and general routines including ID bracelet, bed and alarms, visiting hours, pain management, procedures, bathroom and other care routines, personal items, smoking policy, room service/diet, and visiting hours. Patient/Family are encouraged to report perceived risks to care and to ask questions if they do not understand what they are told or what they should do.
--- NOTE | 2024-10-31 02:29 | PC.NURSE ---
Dr. Mac on unit, update on pt and tracing. Orders received to discharge pt with instructions to keep next scheduled appointment and when to return to the unit.
--- NOTE | 2024-10-31 02:59 | PC.NURSE ---
Pt discharged with instructions to keep next scheduled appointment and when to return to the unit.
--- NOTE | 2024-11-04 07:29 | PM.OBTRLD ---
OB - Triage/Final Diagnosis Visit Information Date of evaluation: 10/31/24 Reason for evaluation: decreased movement Comments/Additional reasons for admission: I have assessed the risk for this patient, Meghna Magali Cuello, and determined that she would benefit from observation care.
== END 2024-10-31 02:59 | disposition home or self-care (01) ==
PROVIDERS: Admitting Provider Student in an Organized Health Care Education/Training Program; PCP Family Medicine; Visit Provider Student in an Organized Health Care Education/Training Program
DX: O36.8130 Decreased fetal movements, third trimester, not applicable or unspecified (principal); Z3A.32 32 weeks gestation of pregnancy
CPT/HCPCS: G0378; G0379

== ENCOUNTER 2024-11-05 16:48 | Outpatient (CLI) | payer OTHER, SELFPAY ==
--- OUTSIDE RECORDS SUMMARY | 2024-11-05 16:54 | XMS_ITS | Data Portability ---
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 Outbound Sales Executive variances may occur. Despite proofreading, typographical errors may occur. Occasional wrong-word or 'cqpmo-n-ztpu' substitutions may have occurred due to the inherent limitations of voice recording. Read the chart carefully and recognize, using context, where substitutions have occurred. [email or web address] Not available 02/27/2024 09:56:24 03/04/2024 03/04/2024 This note is dictated and transcribed by [employer]. Outbound Sales Executive variances may occur. Despite proofreading, typographical errors may occur. Occasional wrong-word or 'cxscz-g-ssrc' substitutions may have occurred due to the inherent limitations of voice recording. Read the chart carefully and recognize, using context, where substitutions have occurred. Not available 03/04/2024 14:58:19 04/17/2024 04/17/2024 This note is dictated and transcribed by [employer]. Outbound Sales Executive variances may occur. Despite proofreading, typographical errors may occur. Occasional wrong-word or 'didue-t-kqfc' substitutions may have occurred due to the [...] Recorded Time Ganglion cyst of left foot 5777381054144 103 Active 2023 Toby Wright DPM [address], [place], [address] , [facility] 09:56:28 Pain in left foot 5941307850809 07 Active 2023 Toby Wright DPM [address], [address], [place], [address] , [facility] 09:56:32 Attention deficit hyperactiv ity disorder 529399195 Active 2023 Roseanne alexandra [facility] 10:21:49 Environmen sully allergy 142655961 Active 2023 Roseanne alexandra, [facility] 10:21:56 Anxiety 78144767 Active 2023 Roseanne alexandra, [facility] 10:22:09 Bronchitis 91628509 Active 2023 Roseanne alexandra, [facility] 10:23:54 Depressive disorder 66704750 Active 2023 Roseanne alexandra, [facility] 10:24:01 Disorder of eye 953913910 Active 2023 Roseanne alexandra, [facility] 10:24:09 Headache 79599370 Active 2023 Roseanne alexandra [facility] 10:24:15 Migraine 36000872 Active 2023 [facility] [place] [facility] 10:24:22 Problem Notes None recorded. Procedures Surgical History Date Name Laterality Status Provider Name and Address Organization Details Recorded Time 02/27/20 24 Blank Procedure Note completed Toby Wright, JEWEL [address], [address], [place], [address], [facility] 02/27/2024 13:32:41 03/31/20 20 cholecystectomy completed Roseanne Winter [facility] [place] [facility] 02/27/2024 10:26:41 03/31/20 10 hammer toe operation completed Roseanne Winter [facility] [place] [facility] 02/27/2024 10:27:17 07/31/19 08 Cyst Removal completed Roseanne Winter [facility] [place] [facility] 02/27/2024 10:27:37 Imaging Results None recorded. Procedure Notes None recorded. Medical Equipment None Reported. Allergies Allergen ID Allergen Name Allergen Category Reaction Reaction Severity Criticality Documentation Date Start Date Code Code System Note Provider Name and Address Organization Details Recorded Time 72112 codeine medicatio n Not available Not available Not available 02/27/2024 2670 RxNorm Roseanne Winter nasrin [facility] [place] [facility] 10:21:03 Medications Name Sig Start Date Stop [...] Not Available Not Available Vitals Date Recorded Body height Body mass index (BMI) Body weight Provider Name and Address Organization Details Last Updated DateTime 02/27/2024 175.26 cm 31 kg/m2 94831.4 g Roseanne Winter [facility] 02/27/2024 10:20:52 Date Recorded Heart rate Respiratory rate Oxygen saturation Oxygen saturation in Arterial blood by Pulse oximetry Systolic And Diastolic Provider Name and Address Organization Details Last Updated DateTime 4 70 /min 14 /min 99 % 99 % 125/89 mm[Hg] Kary [facility] 4 09:20:38 Date Recorded Body height Body mass index (BMI) Body weight Heart rate Respiratory rate Oxygen saturation Oxygen saturation in Arterial blood by Pulse oximetry Systolic And Diastolic Provider Name and Address Organization Details Last Updated DateTime 4 175.26 cm 31 kg/m2 78661.4 g 83 /min 14 /min 99 % 99 % 139/117 mm[Hg] Kary [facility] 4 14:11:09 Date Recorded Body height Body mass index (BMI) Body weight Heart rate Respiratory rate Oxygen saturation Oxygen saturation in Arterial blood by Pulse oximetry Systolic And Diastolic Provider Name and Address Organization Details Last Updated DateTime 4 175.26 cm 31 kg/m2 78003.4 g 91 /min 14 /min 99 % 99 % 150/99 mm[Hg] Kary [facility] 4 15:17:06 Social History None recorded. Functional Status Question Answer Note LastModified by Organizat ion Details LastModified Time What is your level of alcohol consumption? Occasional Information not available 02/27/2024 Mental Status None recorded. Family History Relationship [...] 15:12:57 Medical History Condition Response ALLERGIES/HAYFEVER Y HEADACHES/MIGRAINES Y ANXIETY DISORDER Y DEPRESSION (INCLUDING POST ) Y Gynecological HistoryNo gynecological history recorded. Obstetrics History GPAL:G 0 P 0 0 0 0 Past Encounters Encounter ID Performer Location Encounter Start Date Encounter Closed Date Diagnosis/Indication Diagnosis SNOMED-CT Code Diagnosis ICD10 Code Diagnosis Note [id number] Toby Wright DPM [facility] [address] [place] [address] 02/27/2024 09:14:21 02/28/2024 11:02:09 Ganglion cyst of left foot 5125946790 454406 M67.472 aspiration ganglion cyst left footBand-A id appliedric e therapycon tinue mild compressio nfollow-up 6 weeks Pain in left foot 776311 4140 72208 M79.672 x-rays negativepr evious hammertoe surgery 4th and 5th toes [id number] Toby Wright DPM [facility] [place] [address] [place] [address] 03/04/2024 13:43:28 04/25/2024 15:10:32 Ganglion cyst of left foot 7999681177 108090 M67.472 failed aspiration ganglion cyst left foot- denies aspiration todayrecom mend compressio n sockrecomm end wide soft shoe gearrice therapyfol low-up May for surgical workup Pain in left foot 439125 8220 61848 M79.672 x-rays negativepr evious hammertoe surgery 4th and 5th toes [id number] Toby Wright DPM [facility] [place] [address] [facility] [address] [place] [address] 04/17/2024 15:12:43 04/29/2024 09:26:15 Ganglion cyst of left foot 9415466140 375824 M67.472 failed aspiration ganglion cyst left foot- [...] Member ID Espino Member ID Guarantor Name 04/25/2024 1 [facility] - DOS ON OR AFTER 20 (MEDICAID REPLACEMENT - HMO) Meghna Cuello [id number] Meghna Cuello 04/17/2024 2 [facility] Meghna Cuello [id number] Meghna Cuello 04/17/2024 1 [facility] FEP (PPO) Meghna Cuello [id number] Meghna Cuello Notes Date Note Type Note [...] any other complaints. Toby Wright DPM [address], [place], [address], [facility] 02/27/2024 13:34:32 03/04/2024 text/html . Patient is [...] become problematic. Toby Wright DPM [address], [address], [place], [address], [employer] 03/04/2024 14:59:07 04/17/2024 text/html . Patient is [...] May 10. Toby Wright DPM [address], [address], [place], [address], [employer] 04/17/2024 15:39:07 OBGyn Episode No OBEpisode recorded.
--- OUTSIDE RECORDS SUMMARY | 2024-11-05 16:54 | XMS_ITS | Data Portability ---
Author Organization [facility], Telehealth (patients home) Address [address] [place] [address] Assessment Encounter Date Assessment Date Assessment LastModified by Organization Details LastModified Time 07/10/2024 07/10/2024 Met with Shashank today to follow up with her anxiety EPDS 8 GAD7=9 face to face with Shashank for 55 minutes. 21 minutes of that time was spent on psychotherapy [email or web address] Not available 07/10/2024 13:29:10 Plan of Treatment [...] Modified Time 07/10/2024 5790 insomnia: care instructions [email or web address] Not available 07/10/2024 13:29:21 Reason for Referral None Reported. Problems Name Problem SNOMED Code Status Onset Date Resolution Date Notes Provider Name and Address Organization Details Recorded Time Anxiety in 928071335885 09 Active 2024 Jodie Jaeger CNM, PMHNP-BC [address], [place], [address], [facility] [place] 13:13:02 Insomnia 754907034 Active 2024 Jodie Jaeger CNM, PMHNP-BC [address], [place], [address], [facility] [place] 13:26:11 Anxiety 80792504 Active 2024 Jodie Jaeger, CNTalha, PMHNP- [address], [place], [address], [facility] [place] 23:31:11 Problem Notes None recorded. Procedures Surgical History Date Name Laterality Status Provider Name and Address Organization Details Recorded Time hammer toe operation completed [facility] 07/10/2024 11:12:09 Cholecystectomy completed [facility] 07/10/2024 11:12:15 Imaging Results None recorded. Procedure Notes None recorded. Medical Equipment None Reported. Allergies Allergen ID Allergen Name Allergen Category Reaction Reaction Severity Criticality Documentation Date Start Date Code Code System Note Provider Name and Address Organization Details Recorded Time 176 codeine medicatio n Not available Not available Not available 07/10/2024 2670 RxNorm [facility] 11:06:31 Medications Name Sig Start [...] index (BMI) Body weight Heart rate Systolic And Diastolic Provider Name and Address Organization Details Last Updated DateTime 07/10/2024 175.26 cm 34.1 kg/m2 507073.8 4 g 76 /min 114/70 mm[Hg] Debra Dale [facility] 07/10/2024 11:06:07 Social History Question Answer Notes LastModified by [employer] [facility] Details LastModified Time Tobacco Smoking Status Never Smoker [facility] [place] 07/10/2024 11:11:30 What Is Your Level Of Caffeine Consumption? Occasional Information not available 07/10/2024 Which Illicit Or Recreational Drugs Have You Used? MJ Information not available 07/10/2024 Are There Any Guns Present In Your Home? No [email or web address] Information not available 07/10/2024 Do You Feel Safe In Your Home? Yes [email or web address] Information not available 07/10/2024 Sex: Unknown Functional Status Question Answer Note LastModified by [facility] Details LastModified Time Do you use any illicit or recreational drugs? Yes [email or web address] Information not available 07/10/2024 Do you or have you ever used any other forms of tobacco or nicotine? No Information not available 07/10/2024 What is your level of alcohol consumption? Occasional [email or web address] Information not available 07/10/2024 What is your exercise level? None [email or web address] Information not available 07/10/2024 Mental Status Question Answer Note LastModified by Organization D etails LastModified Time Do you feel stressed (tense, restless, nervous, or anxious, or unable to sleep at night)? [id number] [email or web address] Information not available 07/10/2024 Family History Relationship Description Onset Age of this Age Resolved Age Notes LastModified by Organization Details LastModified Time Maternal Grandmother Malignant tumor of kidney [email or web address] Not available 2024 11:08:19 Maternal Grandmother Diabetes mellitus [email or web address] Not available 2024 11:08:26 Maternal Grandmother Hypertensive disorder [email or web address] Not available 2024 11:08:32 Maternal Grandfather Leukemia [email or web address] Not available 03/2025 11:09:17 Maternal Grandfather Malignant melanoma [email or web address] Not available 2024 11:09:23 Mother Arthritis [email or web address] Not availab le 07/10/2024 11:09:42 Medical History [...] CNM, PMHNP- Main Office [address] [place] [address] 07/10/2024 11:00:51 07/10/2024 16:24:43 Anxiety in 9033993946 9109 F41.9 Continue current management with duloxetine 30 mg PO daily - Encourage non-pharma cological anxiety management techniques - Monitor for worsening symptoms as progresses referals for therapy given plan as long as anxiety and mdd is stable is - Follow up in one month (20 weeks gestation) , then at 36 weeks gestation, and 1-2 weeks Insomnia 859876516 G47.0 0 Discussed cognitive behavioral therapy for [...] Espino Member ID Guarantor Name 08/11/2024 1 [facility] - DOS ON OR AFTER 20 (MEDICAID REPLACEMENT - HMO) Shashank Cuello [id number] Shashank Cuello Notes Date Note Type Note [...] soda.- 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 07/10/2024 13:30:11 OBGyn Episode No OBEpisode recorded.
--- OUTSIDE RECORDS SUMMARY | 2024-11-05 16:54 | XMS_ITS | Patient Health Record ---
Author Organization [employer] [facility] [employer] [facility] Address [address] [place] [address] Support Name Relationship Address Phone Meghna Cuello Guarantor Unknown [phone] Reason For Referral No Information Medications Medication [...] Insured Coverage Start Date Coverage End Date [email or web address] [address] [place] [address] [id number] Meghna Cuello Self - patient is the insured 4 4 Medical (General) History Medical History History ICD Code ADHD Anxiety Disorder
--- OUTSIDE RECORDS SUMMARY | 2024-11-05 16:54 | XMS_ITS | Patient Health Record ---
Author Organization [facility] Address [address] [place] [address] Support Name Relationship Address Phone Meghna Cuello Guarantor Unknown [phone] Reason For Referral No Information Medications Medication [...] Coverage End Date [employer] [address] [place] [address] [id number] Meghna Cuello Self - patient is the insured 4 4 Medical (General) History Medical History History ICD Code ADHD Anxiety Disorder
[2024-11-05 17:01] VITALS: BP 117/68; PULSE 87
[2024-11-05 17:15] VITALS: BP 109/64; PULSE 89
[2024-11-05 17:34] LABS: OBXCEM ROM Plus Negative (Negative)
[2024-11-05 17:52] VITALS: BP 117/68; PULSE 92
== END 2024-11-05 17:40 ==
LOC: ANHOBOP 16:52 → ANHOBPP 16:54
PROVIDERS: PCP Family Medicine; Visit Provider Student in an Organized Health Care Education/Training Program
DX: O42.90 Premature rupture of membranes, unspecified as to length of time between rupture and onset of labor, unspecified weeks of gestation (principal); Z3A.00 Weeks of gestation of pregnancy not specified
CPT/HCPCS: 59025; 84112; 99199

== ENCOUNTER 2024-12-19 05:06 | Inpatient (IN) | payer OTHER, SELFPAY ==
[2024-12-19] VITALS (141 sets, daily range): BP systolic 76–146; BP diastolic 47–94; PULSE 30–148; RESP 16–18; TEMP 36–36.8; O2SAT 83–100; BMI 36.2
--- OUTSIDE RECORDS SUMMARY | 2024-12-19 05:14 | XMS_ITS | Patient Health Record ---
Author Organization [facility] Address [address] [place] [address] Support Name Relationship Address Phone Meghna Cuello Guarantor Unknown [phone] Reason For Referral No Information Medications Medication SIG (Take, Route, Fr equency, Duration) Notes Start Date End Date Status Vyvanse 50 MG Capsule 1 capsule in the m orning Orally Once a day Active Xanax 0.5 MG Tablet 1 tablet Orally Twice a day Active Plan Of Treatment No Information Insurance Providers Payer Name Payer Address Payer Phone Subscriber Number Group Number Insured Name Patient Relationship to Insured Coverage Start Date Coverage End Date [employer] [address] [place] [id number] Meghna Cuello Self - patient is the insured 4 4 Medical (General) History Medical History History ICD Code ADHD Anxiety Disorder
--- OUTSIDE RECORDS SUMMARY | 2024-12-19 05:14 | XMS_ITS | Patient Health Record ---
Author Organization [employer] [facility] [employer] [facility] Address [address] [place] [address] Support Name Relationship Address Phone Meghna Cuello Guarantor Unknown [phone] Reason For Referral No Information Medications Medication [...] Insured Coverage Start Date Coverage End Date [employer] [address] [place] [address] [id number] Meghna Cuello Self - patient is the insured 4 4 Medical (General) History Medical History History ICD Code ADHD Anxiety Disorder
[2024-12-19 06:39] LABS: Hematocrit 33.6 % (37.0-47.0); Hemoglobin 11.1 g/dL (12.0-15.0); Immature Granulocyte Percent A 0.6 % (0-0.5); Lymphocytes Absolute Auto 1.40 K/mm3 (0.9-3.2); Mean Corpuscular HGB Conc 33.0 g/dl (32-36); Mean Corpuscular Hemoglobin 31.0 pg (26-34); Mean Corpuscular Volume 93.9 fl (80-100); Nucleated Red Blood Cells Absolute Auto 0.000 K/mm3 (0.0-0.012); Nucleated Red Blood Cells Perc 0.0 % (0.0-0.2); Platelet Count Result 229 k/mm3 (150-375); Red Blood Count 3.58 M/mm3 (4.2-5.4); White Blood Count 9.7 K/mm3 (4.5-10.0)
--- NOTE | 2024-12-19 06:41 | LDADM ---
This patient, Meghna Cuello, was admitted to Labor/Delivery/Recovery 103 on 12/19/24 at 05:06. Plans for labor, pain management and were discussed with patient. Patient/family oriented to hospital policies and general routines including ID bracelet, bed and alarms, visiting hours, pain management, procedures, bathroom and other care routines, personal items, smoking policy, room service/diet and guest tray routines, infant security routines, and visiting hours. Patient/Family are encouraged to report perceived risks to care and to ask questions if they do not understand what they are told or what they should do. See OBIX for further documentation.
[2024-12-19] MEDS: LACTATED RINGERS 1,000 ML 125 ML IV CONT ×2 (07:18→09:16)
[2024-12-19] MEDS: OXYTOCIN 30 UNITS/NS 500 ML 30 UNITS/500 ML BAG IV CONT (07:19)
[2024-12-19 07:27] LABS: Syphilis IgG/IgM Antibody Non-Reactive (Nonreactive)
--- NOTE | 2024-12-19 07:54 | WPDHPUPDATE1 ---
History and Physical Update Update Date/Time: 12/19/24 07:54 34-year-old who presents at 39 weeks for elective induction of labor History and Physical has been reviewed, including an updated exam of the patient. There are NO changes in the patient's condition. Risks, benefits, and alternatives have been discussed and questions answered. Patient agrees to proceed with procedure. A/P: admit to L&D Routine admission orders labs reviewed Rh positive GBS negative Will plan for a round and Berto cinnamon T shunt Continuous monitoring May have epidural as needed
--- NOTE | 2024-12-19 13:01 | P.PNAN_ITS ---
Anes - Eval Pre Procedure Procedure: Labor epidural Date/Time: 12/19/24 13:01 Surgeon: johanne Preop Diagnosis: pain during labor Pre Op Diagnosis: IOL Patient Data Age: 34 Gender: F Height: 1.75 m Weight: 111.4 kg Last Vital Signs Temp 36.0 C L 12/19/24 12:15 Pulse 101 H 12/19/24 13:00 BP 134/83 12/19/24 13:00 Pulse Ox 100 12/19/24 12:56 O2 Del Method Room Air 12/19/24 07:35 Allergies Allergy/AdvReac Type Severity Reaction Status Date / Time codeine AdvReac Mild Nausea and Verified 12/19/24 06:38 Vomiting Home Medications ?Medication ?Instructions ?Recorded ?Confirmed ?Type vitamins-iron fumarate 65 1 tablet PO DAILY 0 07/08/24 12/19/24 History mg iron-folic acid 1 mg tablet duloxetine 30 mg capsule,delayed 30 mg PO DAILY #90 ca ps 08/28/24 12/19/24 Rx release Laboratory Tests 12/19/24 06:22 WBC 9.7 K/mm3 (4.5-10.0) RBC 3.58 L M/mm3 (4.2-5.4) Hgb 11.1 L g/dL (12.0-15.0) Hct 33.6 L % (37.0-47.0) MCV 93.9 fl (80-100) MCH 31.0 pg (26-34) MCHC 33.0 g/dl (32-36) RDW 13.8 % (11.5-14.5) Plt Count 229 k/mm3 (150-375) MPV 10.8 H fl (7.4-10.4) Immature Gran % (Auto) 0.6 H % (0-0.5) Neut % (Auto) 77.2 H % (45.5-73.1) Lymph % (Auto) 14.4 L % (18.3-44.2) Cochran % (Auto) 6.7 % (2.6-8.5) Eos % (Auto) 0.7 % (0-4.4) Baso % (Auto) 0.4 % (0.2-1.2) Lymph # (Auto) 1.40 K/mm3 (0.9-3.2) Cochran # (Auto) 0.7 H K/mm3 (0.1-0.6) Eos # (Auto) 0.1 K/mm3 (0-0.3) Baso # (Auto) 0.0 K/mm3 (0.0-0.1) Abs Immat Gran (auto) 0.06 H K/mm3 (0.00-0.031) Absolute Neuts (auto) 7.5 H K/mm3 (1.3-6.7) Absolute Nucleated RBC 0.000 K/mm3 (0.0-0.012) Nucleated RBC % 0.0 % (0.0-0.2) Syphilis IgG/IgM Ab Non-reactive (Nonreactive) Blood Type O Positive Antibody Screen Negative Patient hx anesthesia problems: none Family hx anesthesia problems: none Results Review: All pre-operative results and documents have been reviewed as part of the pre- operative evaluation. [facility] Past Medical History Medical History Thoracolumbar back pain Localized macular rash Candidiasis of breast Rapid heart rate Abnormal weight gain Encounter to establish care Dizziness Migraine Foot injury (normal spontaneous vaginal delivery) Cramping affecting , antepartum IUP (intrauterine ), incidental Urinary symptom or sign Encounter for surgical aftercare following surgery on the digestive system Abdominal tenderness Abdominal pain Diarrhea Esophagitis with gastritis Chronic cholecystitis with calculus Chronic cholecystitis Depression Anxiety Anxiety and depression Suppression of menses Scalp irritation History of MRSA infection inner thigh, 2012 - treated outpatient Anxiety History of kidney stones Depression Patient denies significant medical history Surgical History Surgical History H/O hammer toe correction Hx laparoscopic cholecystectomy 04/13/20 Dislocation of proximal interphalangeal joint of finger S/P ovarian cystectomy Family History Family History Grandparent Family history of osteoarthritis Family history of malignant neoplasm of kidney Diabetes mellitus Hypothyroid Lymphoma Family history of malignant neoplasm of urinary bladder Cataract Hypertension Asthma Arrhythmia Mother Bipolar 1 disorder Hypertension Social History Social History Smoking status: Never smoker Alcohol intake: never Substance use: never Do You Feel Safe in your Home?: Yes Lack of Transportation: No Lack of Food: Never True Current Housing: I Have Housing Concerned About Future Housing: No Difficulty Paying Gas/Electric Bills: No Difficulty Paying for Meds: No Currently Unemployed: No Education: Associate Degree Difficulty w/ Childcare or Family Care: No Living arrangements: with family Occupation/Education: unemployed Gender identity (if verbalized by the patient): Female Spiritual care concerns: No Exam Day of Procedure 12/19/24 13:01
--- NOTE | 2024-12-19 15:06 | P.PCNOB_ITS ---
OB - Vaginal Delivery Note Procedure Delivery date: 12/19/24 Events: Elective Induction of Labor Induction method: Per Pitocin Protocol Delivery augmentation: Rupture of Membranes Delivery monitor: External FHT and External Uterine Route of delivery: Episiotomy description: None Laceration Description: Perineal - 2nd Degree and Vaginal (bilateral) Delivery repair: vicryl Specimen: No Quantitative Blood Loss (ml): 200 Anesthesia type: Epidural Disposition: Floor Complications: No immediate complications Narrative: Patient pushed for a spontaneous vaginal delivery. The fetus was delivered atraumatically and placed on the maternal abdomen. The cord was clamped and cut after 1 minute of life. The cord was double clamped and cut and a segment of cord was collected for cord gases. Cord blood was collected for blood type and Coomb's testing. The placenta delivered spontaneously and was noted to be intact. The perineum was inspected and a 2nd degree perineal laceration was noted. The laceration was repaired with 3-0 vicryl in a running fashion. The fundus was noted to be firm and good hemostasis was noted. The mom and were stable in the delivery room. [facility] Baby Date of : 12/19/24 Time of : 14:37 Gestational Age by Date: 39 gender: Female Weight (pounds): 9 Weight (ounces): 0 presentation: vertex position: Right Occiput Anterior Placenta delivery description: Spontaneous Cord Vessel Description: 3 Vessels
[2024-12-19] MEDS: OXYTOCIN 30 UNITS/NS 500 ML 30 UNITS/500 ML BAG 125 UNITS IV CONT (15:23)
[2024-12-19] MEDS: ACETAMINOPHEN 325 MG TABLET 650 MG PO ×2 (17:24→23:22)
[2024-12-20 00:05] VITALS: BP 127/82; PULSE 98; RESP 17; TEMP 37; O2SAT 98
[2024-12-20] MEDS: IBUPROFEN 600 MG TABLET PO ×2 (03:00→10:59)
[2024-12-20 04:45] VITALS: BP 124/75; PULSE 92; RESP 17; TEMP 36.9; O2SAT 98
[2024-12-20 05:12] LABS: Hematocrit 29.2 % (37.0-47.0); Hemoglobin 9.5 g/dL (12.0-15.0)
[2024-12-20] MEDS: ACETAMINOPHEN 325 MG TABLET 650 MG PO ×3 (05:21→22:48)
--- NOTE | 2024-12-20 07:31 | P.PNOB_ITS ---
OB - PN: Subj Subjective Date/time seen: 12/20/24 07:31 Patient comments: no complaints, pain well controlled and tolerating diet Ney feeding status: exclusively breast feeding Narrative: patient doing well this AM. No complaints. Pain is well controlled. She reports minimal bleeding. She is ambulating and voiding without difficulty. She is tolerating PO. She denies N/V, fever, chills. OB - PN: Obj Data Labs 12/20/24 05:01 Labs: Laboratory Results - last 24 hr 12/19/24 12/20/24 06:22 05:01 Hgb 9.5 L Hct 29.2 L Antibody Screen Negative OB - PN A/P Plan day: 1 Plan: routine care Comments: patient doing well H/H 9.09/26, asymptomatic, VSS continue routine care anticipate d/c home tomorrow Time Spent With Patient Time: Total time spent is greater than 50% in coordination of care (as documented) at patient's floor/unit and/or counseling patient: Time with patient: less than 15 minutes Review of Systems 2 Review of Systems: All systems reviewed & are unremarkable except as noted in HPI and below Exam 2 Const: General: comfortable and no acute distress Resp: Effort & Inspection: normal respiratory effort Cardio: Rate: regular rate GI: GI Palp: Yes Soft to palpation and No Tenderness to palpation present (GI) Auscultation: normal bowel sounds Other: fundus firm and below umbilicus. Psych: Affect: normal affect
--- NOTE | 2024-12-20 07:32 | PM.OBDSVD ---
DS: Admitting Diagnosis Discharge Date 12/21/24 Admitting Diagnosis intrauterine at term DS: Discharge Diagnosis Discharge Diagnosis (1) (normal spontaneous vaginal delivery): Code(s): O80 - Encounter for full-term uncomplicated delivery Status: Acute OB - DS: Summary OB Procedures : None OB Procedures Intrapartum: Spontaneous Vag Delivery OB Procedures: : None Peripartum Data Laceration Description: Perineal - 2nd Degree and Vaginal (bilateral) Episiotomy description: None Status at Discharge Functional status at discharge: independent ambulation Overall status at discharge: patient is back to baseline Time Spent with Patient Time attestation: Total time spent providing and/or coordinating discharge services: Time spent: Less than 30 minutes Exam Const: General: comfortable and no acute distress Resp: Effort & Inspection: normal respiratory effort Auscultation: clear to auscultation bilaterally Cardio: Rate: regular rate GI: GI Palp: Yes Soft to palpation Auscultation: normal bowel sounds Other: Fundus firm below umbilicus Psych: Appearance: grossly normal Mental Status: mental status grossly normal Affect: normal affect DS: Data Data Completed and Pending Labs on day of discharge: Labs from last 24 hours 12/20/24 12/19/24 05:01 06:22 Hgb 9.5 L Hct 29.2 L Antibody Screen Negative Discharge Plan Discharge Discharging Clinician: Davin Mac Patient Disposition: Home Activity: as tolerated and pelvic rest Diet: regular Patient Instructions: Antibiotic Form, Vaginal Delivery (DC) Patient Language: Gabonese Stand Alone Forms: General Discharge Information Follow-up/Referrals: Davin Mac MD [Physician, THREAD MACHINE OPERATOR] Discharge Medications: New ibuprofen 600 mg tablet 600 mg PO Q6H PRN (Reason: pain) Qty: 30 0RF acetaminophen 500 mg tablet 500 mg PO Q6H PRN (Reason: pain) Qty: 30 0RF Continued duloxetine 30 mg capsule,delayed release(DR/EC) 30 mg PO DAILY Qty: 90 1RF vit-iron fum-folic ac 65 mg iron- 1 mg tablet 1 tablet PO DAILY Date of admission: 12/19/24 05:06 Primary Care Provider: Omid Bernal Admitting Provider: Davin Mac Attending physician on admission: Davin Mac Condition: Stable
[2024-12-20 09:20] VITALS: BP 138/86; PULSE 93; RESP 18; TEMP 37.3; O2SAT 100
[2024-12-20] MEDS: DOCUSATE SODIUM 100 MG CAPSULE PO ×2 (10:59→16:26)
[2024-12-20] MEDS: MULTIVIT/MIN/PREN/FOL AC/IRON TABLET 1 TAB PO (10:59)
--- NOTE | 2024-12-20 18:32 | PC.NURSE ---
1700. Introductions were made, then consulted with patient to assess needs related to . Discussed with mother her plans to feed her and the experience so far. Encouraged mother to express any questions or concerns she has regarding feedings. Advised her to call out for a latch check or if she needs assistance waking or positioning baby. Reviewed the blue feeding worksheet for required output and feeding at least 8-12 times every 24 hours. Resources provided for inpatient and outpatient services with the feeding sheet, mom/baby guide, and name/number written on the communication board. Mother voiced understanding of information and will call if there is a request for assistance. Reported to the Primary RN?
[2024-12-20 20:50] VITALS: BP 126/78; PULSE 90; RESP 18; TEMP 36.9; O2SAT 98
[2024-12-21 08:12] VITALS: BP 112/63; PULSE 74; RESP 16; TEMP 36.6; O2SAT 98
[2024-12-23 13:04] VITALS: BP 132/79; PULSE 86; RESP 18; TEMP 36.6; O2SAT 99
--- NOTE | 2024-12-23 13:15 | PC.NURSE ---
Follow up RN called for feeding assistance. Patient is , pumping, and bottle feeding. Her nipples are scabbed and raw. She latches baby in football hold and the latch appears optimal. The initial latch on is 'toe curling' pain but it becomes tolerable after a few seconds. Mom's nipples are smashed after the feeding. Baby's tongue was assessed and found to be tight. Advised speaking with the emergency medicine physician assistant to determine if there is a tie and if treatment is needed. Baby is able to move her tongue past her lower gum and to the bottom lip. Patient has been using a wearable pump that she feels is not as good as her Medela plug in pump that she used with her last baby. We reviewed pump efficiency and that trying the Medela may give her better results especially until she has a well established supply. Hands on pumping is recommended. Mom switched breasts and baby latched to the right in football. After about 7 minutes, baby was asleep and mom broke the latch. Baby was content for a few minutes and then began rooting and fussing. She was unable to achieve a latch again due to her frantic state. Mom was offered a bottle to supplement and she agrees. Reviewed with patient nipple healing, using hydrogel pads, options like nipple merritt and shells, and resting the breast by pumping and avoiding putting baby directly to breast. Patient has the office phone number for any future needs. Total time spent with patient approximately 45 minutes.
== END 2024-12-21 11:20 | disposition home or self-care (01) | DRG 560 ==
LOC: ANHLDR 05:11 → ANHOB2 18:54
PROVIDERS: Admitting Provider Student in an Organized Health Care Education/Training Program; PCP Family Medicine; Visit Provider Student in an Organized Health Care Education/Training Program
DX: O77.0 Labor and delivery complicated by meconium in amniotic fluid (principal); Z37.0 Single live birth; Z3A.39 39 weeks gestation of pregnancy; O70.1 Second degree perineal laceration during delivery; O44.43 Low lying placenta NOS or without hemorrhage, third trimester
CPT/HCPCS: 36415; 85014; 85018; 85025; 86593; 86850; 86900; 86901; A9270; J2590; J2795; J7120

== ENCOUNTER 2025-02-05 14:43 | Outpatient (CLI) | payer OTHER, SELFPAY ==
[2025-02-05 16:32] LABS: Beta HCG Quantitative < 2.39 mIU/ML
== END 2025-02-05 14:44 | disposition home or self-care (01) ==
LOC: ANHLAB 14:45
PROVIDERS: PCP Family Medicine; Visit Provider Student in an Organized Health Care Education/Training Program
DX: Z30.430 Encounter for insertion of intrauterine contraceptive device (principal)
CPT/HCPCS: 36415; 84702